=== PATIENT | female | born 2000 | race Caucasian/White ===

== ENCOUNTER → 2019-10-29 | Outpatient (CLI) | payer MEDICAID, SELFPAY ==
[2015-06-24 10:47] VITALS: BMI 26.3
[2019-10-29 19:21] LABS: Chlamydia Trachomatis by PCR Negative (Negative); Neisserai gonorrhoeae by PCR Negative (Negative); Probe Check PASS; Sample Adequacy Control PASS; Specimen Processing Control PASS
== END | disposition home or self-care (01) ==
PROVIDERS: PCP Family Medicine; Referring Provider Obstetrics & Gynecology; Visit Provider Obstetrics & Gynecology
DX: Z11.3 Encounter for screening for infections with a predominantly sexual mode of transmission (principal)
CPT/HCPCS: 87491; 87591

== ENCOUNTER → 2019-11-09 | Outpatient (CLI) | payer MEDICAID, SELFPAY ==
[2015-06-24 10:47] VITALS: BMI 26.3
[2019-11-09 15:22] LABS: Absolute Lymphocyte Count 3.23 X10^3/uL (0.83-4.51); Absolute Neutrophil Count 9.3 X10^3/uL (2.0-7.7); Basophil# 0.05 X10^3/uL; Basophil% 0.4 % (0-1); Eosinophil# 0.17 X10^3/uL; Eosinophils% 1.3 % (0-5); Hematocrit 40.9 % (37-47); Hemoglobin 13.9 g/dL (12.0-15.0); Lymphocyte # 3.23 X10^3/ul (4.0); Mean Corpuscular Hgb 30.8 pg (27.0-32.0); Mean Corpuscular Volume 90.7 fL (81-99); Mean Platelet Vol. 10.2 fl (6.2-12.0); Monocyte# 0.64 X10^3/uL; Monocyte% 4.8 % (0-10); NRBC Flagged by Analyzer 0 % (0-5); Neutrophil % 68.9 % (47-70); Platelet Count 288 K/mm3 (150-450); RBC Distribution Width CV 12.4 % (11.6-14.6); RBC Distribution Width SD 40.5 fl (35.1-43.9); Red Blood Count 4.51 M/mm3 (4.2-5.4); White Blood Count 13.5 K/mm3 (4.4-11.0)
[2019-11-09 15:39] LABS: Color, Urine Straw (Yellow); Glucose, Dipstick Normal (Normal); Ketone-Dipstick Negative (Negative); Leukocyte Esterase-Dipstick Negative /ul (Negative); Nitrite-Dipstick Negative (Negative); Occult Blood-Urine Negative /ul (Negative); Protein-Dipstick Negative (Negative); Specific Gravity, Urine 1.015 (1.002-1.030); Urine Bilirubin Dipstick Negative (Negative); Urine Clarity Clear (Clear); Urine Urobilinogen Normal (Normal)
[2019-11-09 15:53] LABS: Amphetamine Urine VISTA NEGATIVE (<1000 ng/mL); Barbiturate Urine VISTA NEGATIVE (< 200 ng/mL); Benzodiazepine Urine VISTA NEGATIVE (< 200 ng/mL); Cocaine Urine VISTA NEGATIVE (< 300 ng/mL); Ecstacy Urine VISTA NEGATIVE (< 500 ng/mL); Methadone Urine VISTA NEGATIVE (< 300 ng/mL); PCP Urine VISTA NEGATIVE (< 25 ng/mL); THC Urine VISTA NEGATIVE (< 50 ng/mL); Vista UDS pH Range 6
[2019-11-09 15:56] LABS: Thyroid Stim Hormone (TSH) 2.94 uIU/mL (0.358-3.74)
[2019-11-12 10:25] LABS: HIV - WCH Non-Reactive (Nonreactive); Hepatitis B Surface Antigen Non-Reactive (Nonreactive); Hepatitis C Antibody Non-Reactive (Nonreactive); Rubella IgG 42.3 IU/mL
[2019-11-15 01:34] LABS: Prenatal RPR NONREACTIVE (NONREACTIVE)
== END | disposition home or self-care (01) ==
LOC: LABSPEC 14:48
PROVIDERS: PCP Family Medicine; Referring Provider Obstetrics & Gynecology; Visit Provider Obstetrics & Gynecology
DX: Z34.81 Encounter for supervision of other normal pregnancy, first trimester (principal)
CPT/HCPCS: 80307; 81002; 84443; 85025; 86703; 86762; 86803; 87340

== ENCOUNTER → 2020-02-13 16:03 | Outpatient (CLI) | payer MEDICAID, SELFPAY ==
[2015-06-24 10:47] VITALS: BMI 26.3
[2020-02-13 17:43] LABS: Mean Corp Hgb Conc 32.4 g/dL (32-36); Mean Corpuscular Hgb 31.5 pg (27.0-32.0); Mean Corpuscular Volume 97.1 fL (81-99); Mean Platelet Vol. 10.1 fl (6.2-12.0); Platelet Count 363 K/mm3 (150-450); RBC Distribution Width CV 13.1 % (11.6-14.6); RBC Distribution Width SD 46.5 fl (35.1-43.9); Red Blood Count 3.81 M/mm3 (4.2-5.4); White Blood Count 17.7 K/mm3 (4.4-11.0)
[2020-02-13 17:50] LABS: Glucose Challenge Gest 1H 50g 122 mg/dL (70-140)
== END ==
PROVIDERS: PCP Family Medicine; Visit Provider Obstetrics & Gynecology
DX: Z34.82 Encounter for supervision of other normal pregnancy, second trimester (principal)
CPT/HCPCS: 36415; 82950; 85027

== ENCOUNTER 2020-03-18 19:05 | Outpatient (CLI) | payer MEDICAID, SELFPAY ==
[2015-06-24 10:47] VITALS: BMI 26.3
[2020-03-18 19:25] VITALS: BMI 34.7
[2020-03-18] MEDS: Acetaminophen 500 MG Tablet 1000 MG PO (20:23)
[2020-03-18 21:46] LABS: Fetal Fibronectin Negative
--- NOTE | 2020-03-29 09:17 | OB.TRI.NOTE ---
History of Present Illness Date of Service: 03/18/20 Was patient seen by the physician?: No Reason For Visit: R/O LABOR Date of Service: 03/18/20 Final CEZAR: 05/08/20 Gestational age: 32 Weeks and 4 Days History of Present Illness: 32+ week intrauterine presents with some transient contractions. has been complicated by baby with gastroparesis. Patient was to follow with MFM and transfer total care to their practice. However, she has not yet done this and when she began christine and called maternal- medicine they instructed her to come here since she had not yet established care with their practice. Patient denies any bleeding and has noted good movement. Contractions are described as very mild. Allergies No Known Allergies Allergy (Verified 06/24/15 10:50) Laboratory Studies: Laboratory Tests 03/18/20 Range/Units 20:31 Fibronectin Negative NST - FHR Rate Baby B NST Reactive:: Yes FHR Category:: Category I Impression/Plan 32+ week intrauterine with having gastroparesis with transient contractions. fibronectin was negative and cervix is nonthreatening. Contractions subsided after oral fluids. Will discharge to home and to call with any increased contractions. Patient strongly encouraged to follow-up with maternal medicine as has been previously scheduled and she will call the office to have this arranged.
== END 2020-03-18 22:12 | disposition home or self-care (01) ==
LOC: WPOUT 19:08 → OBT 19:08
PROVIDERS: Obstetrics & Gynecology; PCP Family Medicine; Visit Provider Obstetrics & Gynecology
DX: O62.9 Abnormality of forces of labor, unspecified (principal); Z3A.32 32 weeks gestation of pregnancy
CPT/HCPCS: 59025; 59050; 82731; 99218; G0378

== ENCOUNTER 2020-04-08 14:55 | Outpatient (CLI) | payer MEDICAID, SELFPAY ==
[2020-04-08 15:08] VITALS: BMI 36.5
[2020-04-08 15:10] VITALS: TEMP 36.7; O2SAT 97
[2020-04-08 15:11] VITALS: BP 120/66; PULSE 103
[2020-04-08 15:56] LABS: ROM Internal Control Test YES-OK TO RESULT pt. (Internal QC); ROM Patient Test Negative (Negative)
--- NOTE | 2020-04-14 12:02 | OB.TRI.NOTE ---
- Problem List (1) 35 weeks gestation of Status: Acute History of Present Illness Date of Service: 04/08/20 Was patient seen by the physician?: No Reason For Visit: R/O SROM Final CEZAR: 05/08/20 Gestational age: 35 Weeks and 5 Days History of Present Illness: c/o leaking of fluid. complicated by gastroschesis. Patient plans delivery in [place] with [facility]. Allergies No Known Allergies Allergy (Verified 04/08/20 15:08) Laboratory Studies: Laboratory Tests 04/08/20 Range/Units 15:15 Vag Amniotic Fld Detect Negative (Negative) Physical Exam Vitals: Vital Signs Temp Pulse BP Pulse Ox 98.0 F 103 H 120/66 97 04/08/20 15:10 04/08/20 15:11 04/08/20 15:11 04/08/20 15:10 NST - FHR Rate Baby A Baseline: 145 Variability:: Moderate Accelerations:: 15 x 15 Decelerations:: None NST Reactive:: Yes FHR Category:: Category I Uterine Activity:: 2/10 Impression/Plan Labs & Testing Vag Amniotic Fld Detect Negative (Negative) 04/08/20 15:15 19yo G1 @ 35 5/7 wga with false labor < 37wga -Patient does not feel contractions per report -No ROM -d/c home
== END 2020-04-08 16:25 | disposition home or self-care (01) ==
LOC: WPOUT 15:05 → WP 15:07
PROVIDERS: PCP Family Medicine; Referring Provider Obstetrics & Gynecology; Visit Provider Obstetrics & Gynecology
DX: O47.03 False labor before 37 completed weeks of gestation, third trimester (principal); Z3A.35 35 weeks gestation of pregnancy
CPT/HCPCS: 59025; 59050; 84112; 99218; G0378

== ENCOUNTER 2020-04-18 18:25 | Inpatient (IN) | payer MEDICAID, SELFPAY ==
[2020-04-18] VITALS (13 sets, daily range): BP systolic 119–164; BP diastolic 72–102; PULSE 79–108; RESP 16–20; TEMP 36.1–37.7; O2SAT 98–100; BMI 36.2
[2020-04-18] MEDS: Lactated Ringers 1,000 ML 999 ML IV (18:00)
[2020-04-18 18:23] LABS: Hematocrit 40.2 % (37-47); Mean Corp Hgb Conc 32.3 g/dL (32-36); Mean Corpuscular Hgb 29.1 pg (27.0-32.0); Mean Corpuscular Volume 90.1 fL (81-99); Mean Platelet Vol. 10.8 fl (6.2-12.0); Platelet Count 489 K/mm3 (150-450); RBC Distribution Width CV 13.1 % (11.6-14.6); RBC Distribution Width SD 42.8 fl (35.1-43.9); Red Blood Count 4.46 M/mm3 (4.2-5.4); White Blood Count 22.5 K/mm3 (4.4-11.0)
--- NOTE | 2020-04-18 18:27 | HP.PCM_ITS ---
History and Physical Date of Admission: 04/18/20 CC: contractions Subjective HPI: 19 yo at 37/1w, CEZAR 05/08/20 by 15w US, admitted for labor and tachycardia. Pt started contractions today. No LOF, VB. +FM. Denies ALVAREZ, vision changes, chest pain, dyspnea, nausea/emesis. complicated by: gastroschisis, IUGR. Pt had been following with MFM and was planned to be induced on Tuesday04/21/20 in [place]. MFM wanted her to be delivered there. Received [facility] on 04/11 and 04/12 OB Hx: G1: current Medical Hx: Denies Surgical Hx: wisdom teeth extractin Allergies: NKDA Family Hx: noncontributory. No hx of blood clots, bleeding disorders Social Hx: denies alcohol, drugs. +tobacco ROS: otherwise negative aside from above. Physical Exam: Vital Signs - 24 hr 04/18/20 17:39 Temperature 98.4 F Pulse Rate 108 H Blood Pressure 127/73 H Pulse Ox 98 Gen: NAD HEENT: NC/AT CARDIORESP: no increased effort ABDOMEN: soft, NT, gravide EXT: no edema NEURO: no focal deficits CE: 4 cm per RN Panel: Mom's Labs & Results 04/18/20 18:00 WBC 22.5 H RBC 4.46 Hgb 13.0 Hct 40.2 MCV 90.1 MCH 29.1 MCHC 32.3 RDW Std Deviation 42.8 RDW Coeff of Zbigniew 13.1 Plt Count 489 H MPV 10.8 Labs Blood Type: O RH: POSITIVE RPR/VDRL/Syphilis Nonreactive Rubella status Immune HbSAg Negative Date Done: 11/09/19 Chlamydia Negative Gonorrhea Negative HIV/AIDS Non-Reactive Group B Strep: Negative Labs: Laboratory Results - last 24 hr 04/18/20 18:00 WBC 22.5 H RBC 4.46 Hgb 13.0 Hct 40.2 MCV 90.1 MCH 29.1 MCHC 32.3 RDW Std Deviation 42.8 RDW Coeff of Zbigniew 13.1 Plt Count 489 H MPV 10.8 FHR: 170-180s/minimal variability/no accel/no decel [place]: irregular BSUS: cephalic A/P: 19 yo at 37/1w, CEZAR 05/08/20 by 15w US, admitted for labor and tachycardia. complicated by: gastroschisis, IUGR. Will monitor tachycardia, give IVF bolus. Unable to transport at this time due to tachycardia.
[2020-04-18] MEDS: Acetaminophen 500 MG Tablet 1000 MG PO (18:44)
[2020-04-18] MEDS: Lactated Ringers 1,000 ML 150 ML IV (19:08)
[2020-04-18] MEDS: Cefazolin 2 GM in 0.9% Normal Saline 100 ML IV (19:31)
[2020-04-18] MEDS: Sodium Citrate/Citric Acid 30 ML UDC PO (19:31)
[2020-04-18] MEDS: Methylergonovine 0.2 MG/ML Ampul IM (21:09)
[2020-04-18] MEDS: miSOPROStol 200 MCG Tablet 1000 MCG RECTAL (21:21)
--- NOTE | 2020-04-18 21:23 | DCINST_ITS ---
<Alcira Do - Last Filed: 04/18/20 21:23> Discharge Activity: Return to Normal Activity, May not drive while taking narcotic pain medications., May Shower May resume sexual activity in: 6 weeks Weight Bearing Status: Weight bearing as tolerated Call your doctor if your incision/area has: Continuous Slow Oozing, Increased Pain/ Swelling Call your doctor if you observe: Fever of 101 or Higher, Inability to urinate, Inability to have a bowel movement Additional Instructions: If you experience any of the following, contact your healthcare provider. * Bleeding that soaks a pad every hour for 2 hours * Fever 100.4 or higher * Unrelieved incision or abdominal pain * Swelling, redness, discharge or bleeding from your incision or episiotomy site * Your incision begins to separate * Problems urinating (including inability to urinate or burning while urinating). * Visual changes * Severe headache * Flu-like symptoms * Pain or redness in one of both of your breasts * Pain, warmth, tenderness or swelling in your legs, especially the calf area * Frequent nausea and vomiting * Symptoms of depression or anxiety If you experience any of the following, call 911 or go to the nearest Emergency Room. * Chest pain * Problems breathing * Seizure activity * Partial or complete paralysis of a body part, slurred speech, weakness or drooping of the face, or a sudden inability to walk or hold your balance Allergies/Adverse Reactions: Allergies No Known Allergies Allergy (Verified 04/08/20 15:08) Medications to take at Discharge Vits [Prenatabs FA ] 1 tab PO DAILY 03/18/20 Docusate Sodium [Colace] 100 mg PO BID PRN PRN #60 cap 04/20/20 Ibuprofen [Motrin] 600 mg PO Q8H PRN #30 tab 04/20/20 Oxycodone [Oxyir] 1 tab PO Q6H PRN 7 Days #10 tablet 04/20/20 The following prescriptions were given: Docusate Sodium [Colace] 100 mg PO BID PRN PRN #60 cap PRN Reason: constipation [facility] Status[id number] Ibuprofen [Motrin] 600 mg PO Q8H PRN #30 tab PRN Reason: Pain Or Fever Transmission Status: [facility] Oxycodone [Oxyir] 1 tab PO Q6H PRN 7 Days #10 tablet PRN Reason: Pain Score 4-10 Transmission Status: Sent to [id number] Follow-Up: Call to make an appointment with your doctor for an incision check in 1-2 weeks. You will also need a 6 week post- follow up appointment. Test results from this visit will be discussed in further detail at your follow- up appointment, if applicable. Please Follow Up With: Alcira Do DO Primary Care Physician: Cyn Moore DO [Primary Care Provider] - <Yesi Mckeon - Last Filed: 04/20/20 08:12> Suture Line Care: Avoid Pulling/Pushing Additional Instructions: If you experience any of the following, contact your healthcare provider. * Bleeding that soaks a pad every hour for 2 hours * Fever 100.4 or higher * Unrelieved incision or abdominal pain * Swelling, redness, discharge or bleeding from your incision or episiotomy site * Your incision begins to separate * Problems urinating (including inability to urinate or burning while urinating). * Visual changes * Severe headache * Flu-like symptoms * Pain or redness in one of both of your breasts * Pain, warmth, tenderness or swelling in your legs, especially the calf area * Frequent nausea and vomiting * Symptoms of depression or anxiety If you experience any of the following, call 911 or go to the nearest Emergency Room. * Chest pain * Problems breathing * Seizure activity * Partial or complete paralysis of a body part, slurred speech, weakness or drooping of the face, or a sudden inability to walk or hold your balance Follow-Up: Call to make an appointment with your doctor for an incision check in 1-2 weeks. You will also need a 6 week post- follow up appointment. Test results from this visit will be discussed in further detail at your follow- up appointment, if applicable. When: 1-2 weeks
--- NOTE | 2020-04-18 21:24 | PCM.OPRPT ---
Delivery Final CEZAR: 05/08/20 Final CEZAR Source: US <20 weeks Gestational age: 37 Weeks and 1 Days doctor who attended delivery (if requested by OB): Wanda Nagy biomedical engineering technician: Guy Do Type of Anesthesia:: General Date of Procedure: 04/18/20 Pre-Operative Diagnosis: tachycardia, Gastroschisis, 37/1w Post-Operative Diagnosis: tachycardia, Gastroschisis, 37/1w Indications: 19 yo at 37/1w presenting in labor and with tachycardia. Complicated by gastroschisis. Decision for primary section made for tachycardia with minimal variability after attempt at fluid resuscitation made. Original plan to wait for [facility] transport team to arrive, however on further discussion with pilot boat captain on site took patient to OR prior to [facility] arrival, with plan to keep bowel warm and moist until team arrived. R/B/A discussed with patient including but not limited to: risk of bleeding to the point of transfusion, infection, injury to surrounding tissue (bowel or bladder, requiring prolonged ford catheter use), VTE, ICU admission. Pt aware and consented. Description of Procedure: Patient taken to operating room. monitoring continued at that time until anesthesia arrived. Spinal placed. Patient placed in supine position with left lateral tilt. Prepped and draped in usual sterile fashion. Tested with Allis clamp, could feel sharp pain. General anesthesia completed at that time. Pfannensteil incision made with scalpel and carried down through underlying tissue and fascia. Fascia extended bilaterally bluntly. Muscles at the midline and peritoneum entered bluntly. Bladder blade placed. Scalpel used to make a low transverse uterine incision. Uterus entered bluntly, thin meconium fluid. Hysterotomy extended. Hand placed into the uterus and with the assistance of gentle fundal pressure delivered followed by body. No nuchal cord. Cord clamped and cut, warm moist towel placed over exposed bowel. Baby to nurse. Manual extraction of the placenta. Uterus exteriorized and cleared of all clots with dry lap. Hysterotomy closed interlocking fashion followed by second vertical imbricating stitch. 1 [id number] suture placed. Hysterotomy hemostatic. Uterus replaced into the abdomen. Peritoneum closed with a running stitch. Fascia closed with running stitch. Subcutaneous tissue closed in a similar fashion. Skin closed with a running subcuticular stitch. Steri strips placed. The end of the procedure all needle, lap, sponge counts were correct x3. EBL 800 cc at completion of surgery. Patient had 200 additional cc of bleeding and was given 1000 mcg of Cytotec and 1 dose of Methergine. Baby transported to [facility] in stable condition. Amniotic Membrane Rupture Type: Artificial Amniotic Fluid Description: Lightly stained meconium Placenta Disposition: Sent to Pathology Esitmated Blood Loss (ml): 1000cc Gender: Male (1 minute): 5 (5 minute): 8 Delayed cord clamping: No Antibiotic Given: Ancef 2 grams IV x1, Zithromax 500 mg/5 mL X1
[2020-04-18] MEDS: Oxytocin 30 units/NS 500 ml 30 UNITS/500 ML IV.SOLN 167 UNITS IV (21:30)
[2020-04-18] MEDS: HYDROmorphone 0.5 MG/0.5 ML SYRINGE 0.2 MG IV (23:20)
--- NOTE | 2020-04-18 23:38 | NURSING ---
Late entry infant cord gases were collected by Carolina PARKS, and sent to ER via tube system as requested by Katelin SENIOR
[2020-04-19] VITALS (12 sets, daily range): BP systolic 102–116; BP diastolic 56–70; PULSE 74–98; RESP 16–18; TEMP 36.6–38.1; O2SAT 93–98
--- NOTE | 2020-04-19 00:31 | NURSING ---
Pumping initiated at 00:00. 20minutes of pumping. Colostrum collected, labeled, and placed in the breastmilk refrigerator. Parents provided verbal and written instructions on how to pump, when to pump, storing & labeling milk storage containers, and cleaning/ sanitizing pump parts. They both verbalize understanding. Reinforcement needed
[2020-04-19] MEDS: Lactated Ringers 1,000 ML 100 ML IV (00:42)
[2020-04-19] MEDS: Acetaminophen 500 MG Tablet 1000 MG PO ×4 (01:18→19:10)
--- NOTE | 2020-04-19 01:43 | PCM.PN.BLA ---
Progress Note Advised by RN that patient with Tm/c 100.5. 19yo s/p PLTCS for NRFHT with gastroschesis, transferred to [facility]. Had general anesthesia, IV Azithromycin and Ancef, C/S with EBL 1000mL and patient given IM Methergine and misoprostol in addition to pitocin. Patient denies fever, chills, nausea, vomiting, headache, vision changes, short throat, ear pain, chest pain, shortness of breath. Denies urinary sx prior to delivery. She is uncertain if she might have broken her water prior to labor. Her pain is improved with IV pain medication, but she reports painfulness associated with lower abdominal cramping and vaginal pain. VSS, RRR, Lungs CTAB. Abdomen is soft, nontender and nondistended with fundus firm at 2 FW below the umbilicus and nontender, incisional dressing without saturation and surround area also appropriately tender postop. No evidence of infection. Admission wbc elevated, however, likely due to early labor - baseline leukocytosis in with prior wbc 13.5 at 14 week intake and 17 .7 at 27 weeks gestation. Suspect temperature elevation due to misoprostol. Scheduled Tylenol given. Will monitor for additional evidence of infection. Plan to start antibiotics for any high grade temperature. STROKE Vital Signs/Narrative: Vital Signs Temp Pulse Resp BP BP Pulse Ox 04/19/20 01:12 100.5 F H 93 18 116/60 98 04/18/20 23:55 98.8 F 93 16 119/78 100 04/18/20 23:40 99.8 F H 90 18 119/74 100 04/18/20 23:25 99 F 100 16 120/74 100 04/18/20 23:05 99.5 F H 86 16 131/86 H 100 04/18/20 22:55 99.0 F 88 18 129/93 H 100 04/18/20 22:36 98.8 F 79 18 132/86 H 100 04/18/20 22:25 99.3 F H 81 16 142/79 H 100 04/18/20 22:10 97.6 F L 81 16 149/72 H 100 04/18/20 21:55 97 F L 81 20 H 164/102 H 98
--- NOTE | 2020-04-19 02:38 | NURSING ---
0230- Pumping initiated. Pt. up in chair for this pumping session.
[2020-04-19] MEDS: Ketorolac 30 MG/ML Syringe IV ×4 (03:40→21:37)
[2020-04-19] MEDS: oxyCODONE 5 MG Tablet PO ×2 (04:02→08:51)
[2020-04-19 05:35] LABS: Hematocrit 31.7 % (37-47); Hemoglobin 10.4 g/dL (12.0-15.0); Mean Corp Hgb Conc 32.8 g/dL (32-36); Mean Corpuscular Hgb 29.7 pg (27.0-32.0); Mean Corpuscular Volume 90.6 fL (81-99); Mean Platelet Vol. 10.6 fl (6.2-12.0); Platelet Count 376 K/mm3 (150-450); RBC Distribution Width CV 13.2 % (11.6-14.6); RBC Distribution Width SD 43.7 fl (35.1-43.9); White Blood Count 22.8 K/mm3 (4.4-11.0)
--- NOTE | 2020-04-19 07:22 | PN.OBGYN_ITS ---
Patient Problems: Active and Suspected Problems 37 weeks gestation of (Acute) S/P primary low transverse (Acute) Subjective: Harmony reports she is painful this morning at her incision. Denies nausea, vomiting. She tolerates PO. No flatus yet. She was out of bed to chair earlier and pumped colostrum. She reports pain medication helps her pain some. Objective: Vital Signs Temp 99.0 F 04/19/20 05:08 Pulse 98 04/19/20 05:08 Resp 18 04/19/20 05:08 BP 105/56 L 04/19/20 05:08 Pulse Ox 96 04/19/20 05:08 Intake & Output 04/17/20 04/18/20 04/19/20 23:59 23:59 23:59 Intake Total 1520 / 1520 1300 / 1300 Output Total 600 / 600 Balance 920 / 920 1300 / 1300 Weight: 87 kg Intake: Oral 100 / 100 800 / 800 Intake, IV Amount 1420 / 1420 500 / 500 Cefazolin 10 GM/50 ML In 0.9% 110 / 110 Normal Saline 100 ML @ 150 mls/ hr IV X1 ONE Rx#:[id number] Lactated Ringers 1,000 ML @ 150 55 / 55 mls/hr IV .Q6H40M [facility] Rx#: [id number] Lactated Ringers 1,000 ML @ 999 1000 / 1000 mls/hr IV .Q1H1M [facility] Rx#: [id number] Oxytocin 30 units/NS 500 ml 30 500 / 500 UNITS/500 ML30 units In 500 ml @ 167 mls/hr IV .Q3H [facility] Rx#: [id number] Zithromax 500 MG In Dextrose 5% 255 / 255 250 ML @ 250 mls/hr IV X1 ONE Rx#:[id number] Output: Urine 600 / 600 - Physical Exam Vitals/I&O's: Vital Signs Temp Pulse Resp BP Pulse Ox 99.0 F 98 18 105/56 L 96 04/19/20 05:08 04/19/20 05:08 04/19/20 05:08 04/19/20 05:08 04/19/20 05:08 Oxygen Delivery Method Room Air Weight: 87 kg Body Mass Index (BMI) 36.2 Intake and Output for Last 24 Hours 10/01/20 10/02/20 10/03/20 23:59 23:59 23:59 Intake Total 1520 / 1520 1300 / 1300 Output Total 600 / 600 Balance 920 / 920 1300 / 1300 General: Alert, Oriented x3, Cooperative, No apparent distress HEENT: Atraumatic, Normocephalic Lungs: Clear to auscultation, Normal air movement Cardiovascular: Regular rate, Regular Rhythm, Normal S1, Normal S2, No murmurs Abdomen: Soft, Non Tender, Non-Distended, - - Fundus firm and nontender at 2 fw below umbilicus, incisional dressing intact with 2 - 1 cm areas of saturation. Incision is appropriately tender, no rebound/guarding or skin changes Extremities: No edema, No Calf Tenderness Neurological: Deep Tendon Reflexes 2+/4 and Symmetrical Psych/Mental Status: Normal Affect, Appropriate, Alert and oriented to time, place, person, mood and affect Laboratory Results 04/18/20 18:00: WBC 22.5 H, RBC 4.46, Hgb 13.0, Hct 40.2, MCV 90.1, MCH 29.1, MCHC 32.3, RDW Std Deviation 42.8, RDW Coeff of Zbigniew 13.1, Plt Count 489 H, MPV 10.8 04/18/20 18:00: Blood Type O POSITIVE, Antibody Screen NEGATIVE 04/19/20 05:20: WBC 22.8 H, RBC 3.50 L, Hgb 10.4 L, Hct 31.7 L, MCV 90.6, MCH 29.7, MCHC 32.8, RDW Std Deviation 43.7, RDW Coeff of Zbigniew 13.2, Plt Count 376, MPV 10.6 Current Medications Acetaminophen (Tylenol) 1,000 mg PO Q6H [facility] Last Admin: 04/19/20 07:02 Dose: 1,000 mg Documented by: Bisacodyl (Dulcolax) 10 mg RECTAL UD PRN PRN Reason: If no BM Enoxaparin Sodium (Lovenox) 40 mg SC DAILY [facility] Hydrocortisone (Hytone) 1 applic TOPICAL TID PRN PRN; Protocol PRN Reason: Discomfort Hydromorphone HCl (Dilaudid Inj) 0.2 mg IV Q3H PRN PRN PRN Reason: Pain Score 6-10/10 Last Admin: 04/18/20 23:20 Dose: 0.2 mg Documented by: Lactated Ringer's () 1,000 mls @ 100 mls/hr IV .Q10H [facility] Last Admin: 04/19/20 00:42 Dose: 100 mls/hr Documented by: Naloxone HCl 4 mg/ Dextrose 504 mls @ 0 mls/hr IV .Q0M PRN; Protocol PRN Reason: Respiratory depression Ibuprofen (Motrin) 600 mg PO Q6H [facility] Ketorolac Tromethamine (Toradol (Bkc)) 30 mg IV Q6H [facility] Stop: 04/19/20 21:31 Last Admin: 04/19/20 03:40 Dose: 30 mg Documented by: Naloxone HCl (Narcan) 0.02 mg IV Q1M PRN PRN Reason: RR <10 and pt unresponsive Ondansetron HCl (Zofran) 4 mg IV Q4H PRN PRN PRN Reason: Nausea Oxycodone HCl (Oxyir) 5 - 10 mg PO Q4H PRN PRN PRN Reason: Pain Score 4-10/10 Last Admin: 04/19/20 04:02 Dose: 5 mg Documented by: Multivit/Folic Acid/Iron (Prenatabs Fa) 1 tablet PO DAILY [facility] Prochlorperazine Edisylate (Compazine Iv) 10 mg IV Q6H PRN PRN PRN Reason: NAUSEA Senna/Docusate Sodium (Senokot-S, Gala-Colace) 1 - 2 tablet PO DAILY [facility] Simethicone (Mylicon) 80 mg PO PCHS PRN PRN Reason: Indigestion/stomach pain Sodium Chloride () 5 - 15 ml IV UD PRN PRN Reason: SALINE FLUSH Medical Necessity - Tobacco Use Smoking Status: Current every day smoker Assessment/Plan All Active Problems 37 weeks gestation of (Acute) S/P primary low transverse (Acute) 19yo POD# 1 s/p PLTCS for NRFHT, had general anesthesia, infant transported to [facility] for gastroschesis with low grade fever overnight -No further evidence of infection and wbc not significantly elevated from prior this morning. Will continue to monitor. -Rh positive -Routine postop care -Social work consultation
--- NOTE | 2020-04-19 07:37 | NURSING ---
during this shift, this RN observed FOB answering most questions for pt and often interrupting pt to answer questions for her. FOB discussed having financial concerns and relies on his mother for transportation. Social service consult placed
[2020-04-19] MEDS: 0.9% Saline Lock 10 ML Syringe IV ×2 (10:01→15:23)
[2020-04-19] MEDS: Senna/Docusate Sodium 1 Tablet PO (10:03)
[2020-04-19] MEDS: Prenatal Vits Tablet 1 TABLET PO (10:04)
[2020-04-19] MEDS: Enoxaparin 40 MG/0.4 ML Syringe SC (10:05)
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
[2020-04-20 01:08] VITALS: BP 101/61; PULSE 90; RESP 16; TEMP 36.8
[2020-04-20] MEDS: Acetaminophen 500 MG Tablet 1000 MG PO ×2 (01:19→07:03)
[2020-04-20] MEDS: Ibuprofen 600 MG Tablet PO ×2 (03:26→09:41)
[2020-04-20 08:28] VITALS: BP 112/61; PULSE 96
[2020-04-20 08:30] VITALS: BP 112/61; PULSE 96; RESP 16; TEMP 36.7; O2SAT 98
--- NOTE | 2020-04-20 09:04 | PN.OBGYN_ITS ---
Patient Problems: Active and Suspected Problems S/P primary low transverse (Acute) 37 weeks gestation of (Acute) Subjective: Denies significant pain. She has been out of bed, ambulating, had a bowel movement and tolerates PO. Denies nausea, vomiting, chest pain, shortness of breath, headache or vision changes. She is pumping and desires discharge later today. Objective: avss - Physical Exam Vitals/I&O's: Vital Signs Temp Pulse Resp BP Pulse Ox 98.0 F 96 16 112/61 98 04/20/20 08:30 04/20/20 08:30 04/20/20 08:30 04/20/20 08:30 04/20/20 08:30 Oxygen Delivery Method Room Air Weight: 87 kg Body Mass Index (BMI) 36.2 Intake and Output for Last 24 Hours 04/18/20 04/19/20 04/20/20 23:59 23:59 23:59 Intake Total 1520 / 1520 2930 / 2930 Output Total 600 / 600 1300 / 1300 Balance 920 / 920 1630 / 1630 General: Alert, Oriented x3, Cooperative HEENT: Atraumatic, PERRLA, EOMI, Normocephalic Lungs: Clear to auscultation, Normal air movement Cardiovascular: Regular rate, Regular Rhythm, Normal S1, Normal S2, No murmurs Abdomen: Bowel Sounds Present, Soft, Non Tender, - - Fundus firm and nontender, incisional dressing removed and steristrips intact - incision nontender Extremities: No edema, No Calf Tenderness Neurological: Neuro grossly intact Psych/Mental Status: Normal Affect, Appropriate, Alert and oriented to time, place, person, mood and affect Current Medications Acetaminophen (Tylenol) 1,000 mg PO Q6H [facility] Last Admin: 04/20/20 07:03 Dose: 1,000 mg Documented by: Bisacodyl (Dulcolax) 10 mg RECTAL UD PRN PRN Reason: If no BM Enoxaparin Sodium (Lovenox) 40 mg SC DAILY [facility] Last Admin: 04/19/20 10:05 Dose: 40 mg Documented by: Hydrocortisone (Hytone) 1 applic TOPICAL TID PRN PRN; Protocol PRN Reason: Discomfort Hydromorphone HCl (Dilaudid Inj) 0.2 mg IV Q3H PRN PRN PRN Reason: Pain Score 6-10/10 Last Admin: 04/18/20 23:20 Dose: 0.2 mg Documented by: Naloxone HCl 4 mg/ Dextrose 504 mls @ 0 mls/hr IV .Q0M PRN; Protocol PRN Reason: Respiratory depression Ibuprofen (Motrin) 600 mg PO Q6H [facility] Last Admin: 04/20/20 03:26 Dose: 600 mg Documented by: Naloxone HCl (Narcan) 0.02 mg IV Q1M PRN PRN Reason: RR <10 and pt unresponsive Ondansetron HCl (Zofran) 4 mg IV Q4H PRN PRN PRN Reason: Nausea Oxycodone HCl (Oxyir) 5 - 10 mg PO Q4H PRN PRN PRN Reason: Pain Score 4-10/10 Last Admin: 04/19/20 08:51 Dose: 10 mg Documented by: Multivit/Folic Acid/Iron (Prenatabs Fa) 1 tablet PO DAILY [facility] Last Admin: 04/19/20 10:04 Dose: 1 tablet Documented by: Prochlorperazine Edisylate (Compazine Iv) 10 mg IV Q6H PRN PRN PRN Reason: NAUSEA Senna/Docusate Sodium (Senokot-S, Gala-Colace) 1 - 2 tablet PO DAILY [facility] Last Admin: 04/19/20 10:03 Dose: 2 tablet Documented by: Simethicone (Mylicon) 80 mg PO PCHS PRN PRN Reason: Indigestion/stomach pain Sodium Chloride () 5 - 15 ml IV UD PRN PRN Reason: SALINE FLUSH Last Admin: 04/19/20 15:23 Dose: 10 ml Documented by: Medical Necessity - Tobacco Use Smoking Status: Current every day smoker Assessment/Plan All Active Problems S/P primary low transverse (Acute) 37 weeks gestation of (Acute) 19yo POD# 2 s/p PLTCS for NRFHT, had general anesthesia, transported to [facility] for gastroschisis with low grade fever overnight -Temperature curve normalized > 24 hours, suspect T elevation due to misoprostol prior. No si/sx infection -Rh positive -Routine postop care -/pumping -Social work consultation completed -Plan for d/c later today
[2020-04-20] MEDS: Senna/Docusate Sodium 1 Tablet PO (09:41)
[2020-04-20] MEDS: Prenatal Vits Tablet 1 TABLET PO (09:41)
[2020-04-20] MEDS: Enoxaparin 40 MG/0.4 ML Syringe SC (09:41)
--- NOTE | 2020-04-20 09:51 | NURSING ---
baby transferred to [facility]. Pt plans on pumping and bottle feeding at home.
[2020-04-20 11:21] VITALS: RESP 18
--- NOTE | 2020-04-21 06:23 | PCM.DC.SUM ---
Discharge Date and Diagnosis Date of Admission: 04/18/20 Date of Discharge: 04/20/20 - Primary Discharge Diagnosis Acute Problems: Diagnoses Encounter for delivery without indication 04/18/20 Hospital Course and Treatment Operations: - - Low transverse section Summary of Care Provided: The patient is a 19 year old G1 @ 38 weeks gestational age admitted in labor. Her was complicated by gastroschisis and IUGR with plan to delivery in [place]. The FHR tracing however became Category II and did not respond to intrauterine resuscitative efforts. She was delivered by section under general anesthesia, received Methergine and misoprostol postoperative. Total EBL 1000mL. She had low grade immediate postoperative fever without persistence, attributable to misoprostol. Her postoperative course was otherwise unremarkable and she was discharged to home on post-operative day #2. Her was transferred to [facility] immediately after delivery. - Physical Exam Vitals/I&O's: Vital Signs Temp Pulse Resp BP Pulse Ox 98.0 F 96 18 112/61 98 04/20/20 08:30 04/20/20 08:30 04/20/20 11:21 04/20/20 08:30 04/20/20 08:30 Oxygen Delivery Method Room Air Weight: 87 kg Body Mass Index (BMI) 36.2 Intake and Output for Last 24 Hours 04/19/20 04/20/20 04/21/20 23:59 23:59 23:59 Intake Total 2930 / 2930 Output Total 1300 / 1300 Balance 1630 / 1630 Discharge Activity: Return to Normal Activity, May not drive while taking narcotic pain medications., May Shower May resume sexual activity in: 6 weeks Weight Bearing Status: Weight bearing as tolerated Call your doctor if your incision/area has: Continuous Slow Oozing, Increased Pain/ Swelling Call your doctor if you observe: Fever of 101 or Higher, Inability to urinate, Inability to have a bowel movement Suture Line Care: Avoid Pulling/Pushing Home Medications: Medications to take at Discharge Vits [Prenatabs FA ] 1 tab PO DAILY 03/18/20 Docusate Sodium [Colace] 100 mg PO BID PRN PRN #60 cap 04/20/20 Ibuprofen [Motrin] 600 mg PO Q8H PRN #30 tab 04/20/20 Oxycodone [Oxyir] 1 tab PO Q6H PRN 7 Days #10 tab 04/20/20 Following Prescriptions Were Given to Patient: Docusate Sodium [Colace] 100 mg PO BID PRN PRN #60 cap PRN Reason: constipation Transmission Status: Received by [facility] Ibuprofen [Motrin] 600 mg PO Q8H PRN #30 tab PRN Reason: Pain Or Fever [facility] Oxycodone [Oxyir] 1 tab PO Q6H PRN 7 Days #10 tab PRN Reason: Pain Score 4-10 Transmission Status: Received by [facility] Primary Care Physician: Cyn Moore DO [Primary Care Provider] - Please Follow Up With: Alcira Do DO When: 1-2 weeks Medical Necessity - Tobacco Use Smoking Status: Current every day smoker Meaningful Use Info Meaningful Use Diagnoses (Choose all that apply): None applicable
[2020-04-21 11:53] VITALS: BP 124/77; PULSE 75
== END 2020-04-20 11:15 | disposition home or self-care (01) | DRG 540 ==
LOC: WP 20:35 → WPOUT 04-21 09:32
PROVIDERS: Admitting Provider Student in an Organized Health Care Education/Training Program; PCP Family Medicine; Visit Provider Student in an Organized Health Care Education/Training Program
DX: O76 Abnormality in fetal heart rate and rhythm complicating labor and delivery (principal); O35.8XX0 Maternal care for other (suspected) fetal abnormality and damage, not applicable or unspecified; Z3A.37 37 weeks gestation of pregnancy; Z37.0 Single live birth; O36.5930 Maternal care for other known or suspected poor fetal growth, third trimester, not applicable or unspecified; O77.0 Labor and delivery complicated by meconium in amniotic fluid; F17.200 Nicotine dependence, unspecified, uncomplicated; O99.334 Smoking (tobacco) complicating childbirth; R50.82 Postprocedural fever
CPT/HCPCS: 59050; 76815; 85027; 86850; 86900; 86901; 99218; J7120; A4216; G0378; J2405

== ENCOUNTER → 2020-06-09 | Outpatient (CLI) | payer MEDICAID, SELFPAY ==
[2020-04-18 17:43] VITALS: BMI 36.2
[2020-06-12 03:07] LABS: Chlamydia By Nucleic Acid AMP Negative (Negative)
[2020-06-12 08:42] LABS: Gonococcus By Nucleic Acid AMP Negative (Negative)
== END | disposition home or self-care (01) ==
LOC: LABSPEC 06-10 08:22
PROVIDERS: PCP Family Medicine; Visit Provider Obstetrics & Gynecology
DX: Z11.3 Encounter for screening for infections with a predominantly sexual mode of transmission (principal)
CPT/HCPCS: 87491; 87591

== ENCOUNTER 2020-11-18 17:58 | Emergency (ER) | payer MEDICAID, SELFPAY ==
[2020-04-18 17:43] VITALS: BMI 36.2
[2020-11-18 17:59] VITALS: BP 109/92; PULSE 110; RESP 16; TEMP 37.3; O2SAT 98; BMI 39.5
[2020-11-18 18:02] VITALS: BP 109/92; PULSE 110; RESP 16; TEMP 37.3; O2SAT 98
--- NOTE | 2020-11-18 18:24 | EX.ED.DYSGE1 ---
HPI History of Present Illness Chief Complaint: Nausea/Vomiting Informant: patient Onset/Context/Timing Onset: Today Timing: Continuous Current Severity: Mild Maximum Severity: Mild Narrative Narrative: 20-year-old female whose boyfriend had similar symptoms yesterday. She started having nausea, vomiting and diarrhea around 6 AM this morning. Believes she may have thrown up 15-20 times. No hematemesis. No melena. No fever. No dysuria. States she is having abdominal cramping but no severe pain. States she felt fine yesterday. Prior similar symptoms: Yes Recent Illness/Hospitalization: No PFSH PFSH Medical History ADHD (attention deficit hyperactivity disorder) Depression Home Medications methylphenidate HCl [Concerta] 18 mg PO DAILY 11/18/20 [History Last Taken Unknown] ondansetron HCl [Zofran] 4 mg PO Q8H #7 tab 11/18/20 [Rx Last Taken Unknown] Allergy/AdvReac Type Severity Reaction Status Date / Time No Known Allergies Allergy Verified 11/18/20 18:06 Surgical History H/O: Social History Smoking Status: Heavy Smoker (>10/day) ROS ROS ED ROS Narrative Patient denies recent illness until today. Review of Systems ROS Unobtainable: Denies due to encephalopathy Constitutional Constitutional ED: Denies fever(s) Eyes Eyes: Denies change in vision ENT ENT ED: Denies ear pain or sore throat Cardiovascular Cardiovascular: Denies chest pain Respiratory/Chest Respiratory/Chest: Denies cough or dyspnea Gastrointestinal Gastrointestinal: Reports diarrhea, nausea and vomiting; Denies abdominal pain, constipation or melena Genitourinary Genitourinary ED: Denies dysuria or hematuria Musculoskeletal Musculoskeletal: Denies arthralgias or myalgias Integumentary Denies rash Neurologic Neurologic: Denies headache(s) Psychiatric Psychiatric: Denies depression Endocrine Endocrinology: Denies polyuria Allergic/Immunologic Allergic/Immunologic ED: Denies urticaria EXAM Physical Exam Narrative Exam Narrative: Young female no acute distress. Vital signs stable afebrile. Does not look septic or toxic. HEENT exam unremarkable other than mildly dry mucous membranes. Neck nontender no lymphadenopathy. Lungs clear to auscultation bilaterally. Heart regular rhythm rate about 105. No murmur. Abdomen soft nontender normal bowel sounds no peritoneal signs. Both the right upper and right lower quadrants are unremarkable. No distention. No signs of obstruction. Moving all 4 extremities. Skin no rashes. No edema. Neurologically the patient is awake alert with no focal motor deficits. Const Vital Signs: 11/18/20 17:59 11/18/20 18:02 11/18/20 19:14 Temperature 99.1 F 99.1 F 98.5 F Temperature Source Oral Oral Temporal Pulse Rate 110 H 110 H 89 Respiratory Rate 16 16 16 Blood Pressure 109/92 H 109/92 H 100/71 Blood Pressure Mean 97 97 80 Pulse Ox 98 98 100 Oxygen Delivery Method Room Air Room Air Room Air Positive well nourished and well developed General Appearance ED: well developed HEENT Reports dry mucous membranes Negative for trauma or tenderness Mouth ED: Yes dry mucous membranes Mouth: dry mucous membranes Eyes PERRL and EOMs intact bilaterally Neck no lymphadenopathy, supple and no JVD General: Negative for tenderness Chest Wall inspection of chest normal Resp normal respiratory effort and clear to auscultation bilaterally Auscultation: Negative for wheezes Cardio regular rhythm and no murmurs Rate: tachycardic GI normal to inspection, nondistended, normoactive bowel sounds, non-tender and non-distended Palpation: soft Back/Spine no CVA tenderness Extremity normal to inspection Neuro oriented x3 Sensorium / Orientation: alert Motor Exam: strength 5/5 throughout Psych mental status grossly normal Skin no rashes or lesions noted MDM MDM MDM Narrative Medical decision making narrative: 20-year-old female with nausea, vomiting and diarrhea since this morning. Will be treated with IV fluids and Zofran. P.o. fluid challenge prior to discharge. Boyfriend had similar symptoms her exam and history are consistent with a viral gastroenteritis. Repeat exam at 1930 5 PM patient is doing well. Nausea is improved. Nurses will do a p.o. fluid challenge if she passes she will be discharged home with prescription for Zofran. Abdomen remains benign. Discharge Plan Triage Chief Complaint: Nausea/Vomiting ED Provider: Simon Frausto Dx/Rx/DC Orders Clinical Impression: Viral gastroenteritis Instructions: ED Vomiting and Diarrhea ... Prescriptions: New ondansetron HCl [Zofran] 4 mg tablet 4 mg PO Q8H Qty: 7 RF: 0 No Action methylphenidate HCl [Concerta] 18 mg tablet extended release 24hr 18 mg PO DAILY RF: 0 Primary Care Provider: Jany Hendricks NP Referrals: Jany Hendricks NP, [employer] [Primary Care Provider] - 1-2 Days if not improving Activity Restrictions/Additional Instructions: Plenty of fluids and rest. Increase diet slowly as tolerated. Zofran as needed for nausea. Follow-up with your doctor if not improving return to emergency department if you are feeling worse. Disposition Disposition: Home, self care
[2020-11-18] MEDS: 0.9% Normal Saline 1,000 ML 1000 ML IV (18:30)
[2020-11-18] MEDS: Ondansetron 4 MG/2 ML Vial IV (18:30)
[2020-11-18 19:14] VITALS: BP 100/71; PULSE 89; RESP 16; TEMP 36.9; O2SAT 100
== END 2020-11-18 19:49 | disposition home or self-care (01) ==
LOC: ED 18:33
PROVIDERS: Emergency Provider Emergency Medicine; PCP Nurse Practitioner Family
DX: A08.4 Viral intestinal infection, unspecified (principal); F32.9 Major depressive disorder, single episode, unspecified; F90.9 Attention-deficit hyperactivity disorder, unspecified type; Z79.899 Other long term (current) drug therapy; F17.200 Nicotine dependence, unspecified, uncomplicated
CPT/HCPCS: 96361; 96374; 99285; J7030; A4216; J2405

== ENCOUNTER 2021-01-13 16:12 | Emergency (ER) | payer OTHER, MEDICAID, SELFPAY ==
[2021-01-13 16:13] VITALS: BP 117/75; PULSE 92; RESP 16; TEMP 36.4; O2SAT 97; BMI 40.8
--- NOTE | 2021-01-13 16:26 | ED.RN ---
fortunato called or [facility] drug screen. no answer message left for a call back. [phone] jaylin solis rn [id number]
--- NOTE | 2021-01-13 17:23 | EX.ED.GENINJ ---
HPI History of Present Illness Chief Complaint: Head Injury Narrative Narrative: Patient presenting with laceration to the scalp. Its on the vertex of the head. 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 Patient states that she feels fine at this time. She has no nausea or vomiting. She has minimal pain. She does not have any neck pain. She did not injure anything else. Patient states that she has been known to faint sometimes when she gets overheated. She does not feel like she is overly dehydrated. She is making urine. She is drinking normally. Tetanus Immunization: <5 years [facility] Medical History ADHD (attention deficit hyperactivity disorder) Depression Home Medications methylphenidate HCl [Concerta] 18 mg PO DAILY 11/18/20 [History Last Taken Unknown] ondansetron HCl [Zofran] 4 mg PO Q8H #7 tab 11/18/20 [Rx Last Taken Unknown] Allergy/AdvReac Type Severity Reaction Status Date / Time No Known Allergies Allergy Verified 01/13/21 16:18 Surgical History H/O: Social History Smoking Status: Heavy Smoker (>10/day) ROS ROS ED Constitutional Constitutional ED: Denies chills, fever(s) or subjective Eyes Eyes: Denies blurry vision ENT ENT ED: Denies rhinorrhea or sore throat Cardiovascular Cardiovascular: Denies chest pain, palpitations or racing heartbeat Respiratory/Chest Respiratory/Chest: Denies cough or dyspnea Gastrointestinal Gastrointestinal: Denies abdominal pain, nausea or vomiting Genitourinary Genitourinary ED: Denies dysuria or hematuria Musculoskeletal Musculoskeletal: Denies arthralgias or myalgias Integumentary Reports other Details: 1 cm scalp laceration at the vertex of the skull Neurologic Neurologic: Denies headache(s), paresthesias or weakness Psychiatric Psychiatric: Denies anxiety or depression EXAM Physical Exam Const Vital Signs: 01/13/21 16:13 01/13/21 16:45 Temperature 97.5 F L Temperature Source Temporal Pulse Rate 92 Respiratory Rate 16 Respiratory Effort Normal Non-Labored Respiratory Depth Normal Respiratory Pattern Normal Blood Pressure 117/75 Blood Pressure Mean 89 Pulse Ox 97 Oxygen Delivery Method Room Air Positive well nourished General Appearance ED: NAD FELECIAJYOTI FELECIAJYOTI Narrative: 1 cm scalp laceration at the vertex. No surrounding induration. No skull deformity. No active bleeding. Eyes PERRL and EOMs intact bilaterally Neck full ROM General: Negative for tenderness Resp normal respiratory effort and clear to auscultation bilaterally Cardio regular rhythm Rate: regular rate Neuro oriented x3, CN's II-XII intact bilaterally, moves all extremities and no focal motor deficits Sensorium / Orientation: alert and oriented to person Psych mental status grossly normal and thought process normal Skin Skin Narrative: Laceration as noted above MDM MDM MDM Narrative Medical decision making narrative: Patient presenting with scalp laceration which occurred after an episode of syncope. She stated that she did not want to have her syncope evaluated because she does this sometimes when she is overheated. Her scalp laceration is about 1 cm. She requested let gel be placed on it prior. Let was placed and was left in place for 30 minutes. Patient's wound was cleaned and 1 staple was placed in the center with good approximation of the wound margins. Patient does not have any focal neurologic deficits or lateralizing signs or symptoms. I do not believe she needs a CT image. I do not believe she has any signs or symptoms of concussion currently. Patient counseled she will follow up with [facility]. Patient given instructions on wound care and monitor for signs of infection. Patient stable for discharge at this time. Impression: 1. Syncope 2. Scalp laceration 1.0 cm Discharge Plan Triage Chief Complaint: Head Injury ED Provider: Simone Silva Dx/Rx/DC Orders Instructions: ED Laceration Scalp Stitches or Selene, ED Fainting, Uncertain Cause Prescriptions: No Action methylphenidate HCl [Concerta] 18 mg tablet extended release 24hr 18 mg PO DAILY RF: 0 ondansetron HCl [Zofran] 4 mg tablet 4 mg PO Q8H Qty: 7 RF: 0 Primary Care Provider: Jany Hendricks NP Referrals: [facility] [Provider Group] - As soon as possible Jany Hendricks NP, [employer] [Primary Care Provider] - Disposition Disposition: Home, Self Care
[2021-01-13] MEDS: Lidocaine/Epi/Tetracaine 50 ML 1 APPLIC TOPICAL (17:30)
== END 2021-01-13 18:49 | disposition home or self-care (01) ==
PROVIDERS: Emergency Provider Student in an Organized Health Care Education/Training Program; PCP Nurse Practitioner Family
DX: S01.01XA Laceration without foreign body of scalp, initial encounter (principal); R55 Syncope and collapse; W19.XXXA Unspecified fall, initial encounter; Y93.9 Activity, unspecified; Y92.9 Unspecified place or not applicable; F32.9 Major depressive disorder, single episode, unspecified; F90.9 Attention-deficit hyperactivity disorder, unspecified type; Z79.899 Other long term (current) drug therapy; F17.200 Nicotine dependence, unspecified, uncomplicated
CPT/HCPCS: 12001; 99282

== ENCOUNTER → 2021-12-28 | Outpatient (CLI) | payer MEDICAID, SELFPAY ==
[2021-12-28 10:46] LABS: Hematocrit 43.4 % (37-47); Hemoglobin 14.4 g/dL (12.0-15.0); Mean Corp Hgb Conc 33.2 g/dL (32-36); Mean Corpuscular Hgb 29.9 pg (27.0-32.0); Mean Platelet Vol. 9.8 fl (6.2-12.0); Platelet Count 388 K/mm3 (150-450); RBC Distribution Width CV 13.2 % (11.6-14.6); RBC Distribution Width SD 43.1 fl (35.1-43.9); Red Blood Count 4.82 M/mm3 (4.2-5.4); White Blood Count 9.7 K/mm3 (4.4-11.0)
[2021-12-28 11:33] LABS: Follicle Stimulating Hormone 5.7 mIU/mL; Luteinizing Hormone 11.8 mIU/mL; T4 Free Direct 0.85 ng/dL (0.76-1.46); Thyroid Stim Hormone (TSH) 1.34 uIU/mL (0.358-3.74)
[2021-12-31 17:41] LABS: Testosterone Free 2.6 pg/mL (0.0-4.2)
== END | disposition home or self-care (01) ==
LOC: WOBLAB 10:00
PROVIDERS: PCP Nurse Practitioner Family; Visit Provider Obstetrics & Gynecology
DX: N93.9 Abnormal uterine and vaginal bleeding, unspecified (principal)
CPT/HCPCS: 36415; 82670; 83001; 83002; 84402; 84439; 84443; 85027

== ENCOUNTER 2022-04-14 16:32 | Emergency (ER) | payer MEDICAID, SELFPAY ==
[2022-04-14 16:32] VITALS: BP 125/80; PULSE 92; RESP 18; TEMP 37.2; O2SAT 99; BMI 41.8
--- NOTE | 2022-04-14 16:44 | US_ITS ---
STUDY: FIRST TRIMESTER OBSTETRICAL ULTRASOUND REASON FOR EXAM: Female, 21 years old pelvic pain, vaginal bleeding LMP: TECHNIQUE: Transvaginal TECHNICAL QUALITY: Adequate. PRIOR ULTRASOUND: None. FINDINGS: There is visualization of a single gestational sac in a normal intrauterine position. The mean sac diameter (MSD) measures 1.46 cm, indicating an estimated gestational age (EGA) of 6 weeks, 2 days. The gestational sac shape is within normal limits. There is a visualized yolk sac. The yolk sac measures 3.1 mm. The placenta is non-visualized. There is visualization of a live embryo. The crown-rump length (CRL) measures 3.1 mm, indicating an estimated gestational age (EGA) of 6 weeks, 1 days. There is demonstrated cardiac activity with a heart rate of 110 bpm. The estimated gestation age (EGA) by LMP is 12 weeks, 3 days. The estimated date of delivery (CEZAR) by LMP is 10/24/2022. The estimated gestation age (EGA) by US is 6 weeks, 2 days. The estimated date of delivery (CEZAR) by US is 12/06/2022. The uterus measures 7.8 x 5.9 x 3.7 cm. There is no demonstrated uterine fibroid. The cervix is closed. The right ovary measures 3.4 x 2.2 x 2.2 cm. There is a septated cyst measuring 1.5 x 1.7 x 1.5 cm. There is no visualized right adnexal mass or complex lesion. The left ovary measures 4.2 x 2.9 x 2.2 cm. There is a cyst measuring 1.4 x 1.2 x 1.1 cm.. There is no visualized left adnexal mass or complex lesion. There is no fluid in the cul de sac. US/Transvaginal w/Preg US IMPRESSION: Findings which may be consistent with very early intrauterine gestation. Small septated right ovarian cyst and cyst in left ovary, possibly corpus luteum. Clinical correlation recommended Electronically Signed: Nii Suárez MD at 18:02 EDT ,
--- NOTE | 2022-04-14 16:45 | ED.VIS.FEGU ---
HPI HPI - Female History of Present Illness Chief Complaint: Vag Bld, Preg Detail of Chief Complaint: Pelvic pain with vaginal bleeding Informant: patient Pain Pain: Positive for Pelvic Pain Bleeding Issue: Positive for Vaginal bleeding Narrative Narrative: Patient presents to the emergency department with pelvic pain and some vaginal bleeding. Patient thinks she may be around 6 weeks . On the 16th of this month she had a quant that was 536. Patient is . While at work today she developed some lower pelvic cramping and went to the restroom to urinate and after urinating she states that a jellylike substance that looked like blood clot fell out of her vagina. She had no further bleeding. She has minimal discomfort currently. Patient states she is never had anything like this happen before. She denies recent illness. [facility] Medical History (Updated 04/14/22 @ 18:[address] Chanelle Choudhary, ) ADHD (attention deficit hyperactivity disorder) Asthma Depression Laceration without foreign body of scalp, initial encounter Home Medications cholecalciferol (vitamin D3) 50 mcg (2,000 unit) capsule (Vitamin D3) 50 mcg PO DAILY 04/14/22 [History Last Taken Unknown] vitamin with calcium no.72-iron 27 mg-folic acid 1 mg tablet ( Vitamins Plus Low Iron) 1 tab PO DAILY 04/14/22 [History Last Taken Unknown] Allergy/AdvReac Type Severity Reaction Status Date / Time No Known Allergies Allergy Verified 04/14/22 16:47 Surgical History H/O: Social History (Updated 01/22/21 @ 12:54 by Katina Rodríguez) Smoking Status: Light Smoker (<10/day) ROS ROS ED Review of Systems ROS Unobtainable: other Constitutional Constitutional ED: Reports lethargy; Denies chills, fever(s), sweats or weight loss Eyes Eyes: Denies blurry vision, change in vision or diplopia ENT ENT ED: Denies rhinorrhea or sore throat Cardiovascular Cardiovascular: Reports chest pain and racing heartbeat; Denies orthopnea Respiratory/Chest Respiratory/Chest: Reports dyspnea and dyspnea on exertion; Denies cough, orthopnea or sputum Gastrointestinal Gastrointestinal: Reports abdominal pain; Denies diarrhea, nausea or vomiting Genitourinary Genitourinary ED: Reports other Details: Vaginal bleeding ; Denies dysuria, hematuria or urinary frequency Musculoskeletal Musculoskeletal: Denies arthralgias, back pain, myalgias or neck pain Integumentary Denies abscess, Abrasions or rash Neurologic Neurologic: Denies headache(s) or weakness Psychiatric Psychiatric: Denies anxiety, depression or suicidal thoughts Endocrine Endocrinology: Denies polydipsia, polyphagia or polyuria Hematologic/Lymphatic Hematologic/Lymphatic: Denies easy bleeding, easy bruising or lymphadenopathy Allergic/Immunologic Allergic/Immunologic ED: Denies mouth swelling, tongue swelling or urticaria EXAM Physical Exam Const Vital Signs: 04/14/22 16:32 Temperature 98.9 F Temperature Source Temporal Pulse Rate 92 Respiratory Rate 18 Blood Pressure 125/80 H Blood Pressure Mean 95 Pulse Ox 99 Oxygen Delivery Method Room Air Positive well nourished and well developed General Appearance ED: well developed and NAD HEENT Reports TM's clear and moist mucous membranes normocephalic and atraumatic; Negative for trauma or tenderness Tympanic Membrane ED: Yes TM's clear Eyes PERRL and EOMs intact bilaterally General Eye ED: Negative for pale conjunctiva or scleral icterus Neck no lymphadenopathy, supple and no JVD General: Negative for tenderness Chest Wall inspection of chest normal and palpation of chest normal Chest: Negative for tenderness Resp normal respiratory effort and clear to auscultation bilaterally Effort and Inspection: Negative for respiratory distress or pain with movement Auscultation: Negative for rhonchi, wheezes or diminished lung sounds Cardio regular rate, regular rhythm, S1 normal heart sound, S2 normal heart sound and no murmurs Peripheral Pulses: pulses 2+ throughout GI normal to inspection, nondistended, normoactive bowel sounds, soft to palpation, non-distended and no masses GI Narrative: Mild tenderness over the suprapubic region. There is no rebound, rigidity, or peritoneal signs. Back/Spine no CVA tenderness and no thoracic nor lumbar tenderness Extremity normal to inspection General Extremety ED: Negative for edema General Extremity: Negative for edema Neuro oriented x3, CN's II-XII intact bilaterally, no sensory deficits noted and gait normal Sensorium / Orientation: awake, alert, oriented to person, oriented to place and oriented to time Motor Exam: strength 5/5 throughout and strength abnormal Psych mental status grossly normal Skin no rashes or lesions noted and no wounds MDM MDM MDM Narrative Medical decision making narrative: IV line established on arrival. Patient had a serum quant which was 13,421. CBC with differential was unremarkable. Urinalysis unremarkable. I did do a pelvic ultrasound which is consistent with early intrauterine gestation with a heartbeat at 110 bpm and patient was measuring 6 weeks and 2 days. She is O+ blood type. Case discussed with patient's [employer] Dr. Bess who asked that patient follow-up with their office next week if she continues to have bleeding. Patient advised to return to the ER if persistent heavy bleeding or passing clots or severe abdominal pain or condition should worsen anyway. Lab Data Labs: Laboratory Results - last 24 hr 04/14/22 04/14/22 04/14/22 16:40 16:52 16:52 WBC 10.0 RBC 4.16 L Hgb 12.6 Hct 38.5 MCV 92.5 MCH 30.3 MCHC 32.7 RDW Std Deviation 44.7 H RDW Coeff of Zbigniew 13.2 Plt Count 349 MPV 9.4 Immature Gran % (Auto) 1.000 H Neut % (Auto) 64.3 Lymph % (Auto) 26.4 Ocean % (Auto) 6.5 Eos % (Auto) 1.5 Baso % (Auto) 0.3 Absolute Neuts (auto) 6.5 Absolute Lymphs (auto) 2.65 Nucleated RBC % 0 HCG, Quant 94591 H Urine Color Yellow Urine Clarity Clear Urine pH 7.0 Ur Specific [place] 1.015 Urine Protein Negative Urine Glucose (UA) Normal Urine Ketones Negative Urine Occult Blood Negative Urine Nitrite Negative Urine Bilirubin Negative Urine Urobilinogen Normal Ur Leukocyte Esterase 25 H Urine RBC 0 SEEN Urine WBC 0-5 SEEN Ur Squamous Epith Cells 5-10 SEEN Urine Bacteria 2+ Urine Mucus 1+ Radiography Diagnostic Testing: Clinical Impression(s) from Imaging Studies Obstetrics Ultrasound 04/14/22 16:44 IMPRESSION: Findings which may be consistent with very early intrauterine gestation. Small septated right ovarian cyst and cyst in left ovary, possibly corpus luteum. Clinical correlation recommended Electronically Signed: Nii Suárez MD at 18:02 EDT , Discharge Plan Triage Chief Complaint: Vag Bld, Preg ED Provider: Ungur,Remus Dx/Rx/DC Orders Clinical Impression: Threatened in early Instructions: ED Possible Miscarriage ... Prescriptions: No Action cholecalciferol (vitamin D3) [Vitamin D3] 50 mcg (2,000 unit) capsule 50 mcg PO DAILY Label Comments: TAKE 1 CAPSULE BY MOUTH ONCE DAILY Vitamin Plus Low Iron 27 mg iron- 1 mg tablet 1 tab PO DAILY Label Comments: TAKE 1 TABLET BY MOUTH ONCE DAILY Primary Care Provider: Jany Hendricks NP Referrals: Mayra Bess DO [Med Staff - Active Staff] - 5-7 Days Jany Hendricks NP, [employer] [Primary Care Provider] - Disposition Disposition: Home, Self Care
[2022-04-14 16:55] LABS: Red Blood Cells-Urine 0 SEEN /hpf (0-5)
[2022-04-14 16:57] LABS: Color, Urine Yellow (Yellow); Glucose, Dipstick Normal (Normal); Ketone-Dipstick Negative (Negative); Leukocyte Esterase-Dipstick 25 /ul (Negative); Nitrite-Dipstick Negative (Negative); Occult Blood-Urine Negative /ul (Negative); Protein-Dipstick Negative (Negative); Specific Gravity, Urine 1.015 (1.002-1.030); Urine Bilirubin Dipstick Negative (Negative); Urine Clarity Clear (Clear); Urine Urobilinogen Normal (Normal)
[2022-04-14 17:04] LABS: Bacteria 2+ /hpf (None Seen); Squamous Epithelial Cells - UA 5-10 SEEN /hpf (5-10); White Blood Cells 0-5 SEEN /hpf (0-5)
[2022-04-14 17:05] LABS: Mucous, Urine 1+ /hpf (<or=2+)
[2022-04-14 17:16] LABS: Absolute Lymphocyte Count 2.65 X10^3/uL (0.83-4.51); Absolute Neutrophil Count 6.5 X10^3/uL (2.0-7.7); Basophil# 0.03 X10^3/uL; Basophil% 0.3 % (0-1); Eosinophil# 0.15 X10^3/uL; Eosinophils% 1.5 % (0-5); Hematocrit 38.5 % (37-47); Hemoglobin 12.6 g/dL (12.0-15.0); Lymphocyte # 2.65 X10^3/ul (0.83-4.51); Lymphocyte % 26.4 % (19-41); Mean Corp Hgb Conc 32.7 g/dL (32-36); Mean Corpuscular Hgb 30.3 pg (27.0-32.0); Mean Corpuscular Volume 92.5 fL (81-99); Mean Platelet Vol. 9.4 fl (6.2-12.0); Monocyte# 0.65 X10^3/uL; Monocyte% 6.5 % (0-10); NRBC Flagged by Analyzer 0 % (0-5); Neutrophil # 6.46 X10^3/uL (2.7-7.7); Neutrophil % 64.3 % (47-70); Platelet Count 349 K/mm3 (150-450); RBC Distribution Width CV 13.2 % (11.6-14.6); RBC Distribution Width SD 44.7 fl (35.1-43.9); Red Blood Count 4.16 M/mm3 (4.2-5.4)
[2022-04-14 17:57] LABS: hCG Titer Quant., Serum 13421 mIU/mL (1-3)
[2022-04-14 18:47] VITALS: BP 117/72; PULSE 89; RESP 18; O2SAT 98
== END 2022-04-14 18:52 | disposition home or self-care (01) ==
PROVIDERS: Emergency Provider Emergency Medicine; PCP Nurse Practitioner Family; Visit Provider Emergency Medicine
DX: O20.0 Threatened abortion (principal); O99.511 Diseases of the respiratory system complicating pregnancy, first trimester; J45.909 Unspecified asthma, uncomplicated; O99.341 Other mental disorders complicating pregnancy, first trimester; F90.9 Attention-deficit hyperactivity disorder, unspecified type; O99.331 Smoking (tobacco) complicating pregnancy, first trimester; F17.200 Nicotine dependence, unspecified, uncomplicated; Z3A.00 Weeks of gestation of pregnancy not specified
CPT/HCPCS: 76817; 81001; 84702; 85025; 86900; 86901; 99283; A4216

== ENCOUNTER 2022-05-20 12:11 | Emergency (ER) | payer MEDICAID, SELFPAY ==
[2022-05-20 12:11] VITALS: BP 122/81; PULSE 103; RESP 18; TEMP 36.1; O2SAT 98; BMI 43.1
[2022-05-20 13:19] LABS: Absolute Lymphocyte Count 2.18 X10^3/uL (0.83-4.51); Absolute Neutrophil Count 7.2 X10^3/uL (2.0-7.7); Basophil# 0.03 X10^3/uL; Basophil% 0.3 % (0-1); Eosinophil# 0.13 X10^3/uL; Eosinophils% 1.3 % (0-5); Hematocrit 41.6 % (37-47); Hemoglobin 14.3 g/dL (12.0-15.0); Lymphocyte # 2.18 X10^3/ul (0.83-4.51); Lymphocyte % 21.5 % (19-41); Mean Corp Hgb Conc 34.4 g/dL (32-36); Mean Platelet Vol. 9.5 fl (6.2-12.0); Monocyte# 0.53 X10^3/uL; Monocyte% 5.2 % (0-10); NRBC Flagged by Analyzer 0 % (0-5); Neutrophil # 7.21 X10^3/uL (2.7-7.7); Neutrophil % 71.1 % (47-70); Platelet Count 362 K/mm3 (150-450); RBC Distribution Width CV 13.2 % (11.6-14.6); RBC Distribution Width SD 43.3 fl (35.1-43.9); Red Blood Count 4.62 M/mm3 (4.2-5.4); White Blood Count 10.1 K/mm3 (4.4-11.0)
[2022-05-20 13:31] LABS: Anion Gap 6 (5-15); BUN 4 mg/dL (7-18); BUN/Creat Ratio 9.3 RATIO (10-20); Calcium,Total 9.1 mg/dL (8.5-10.1); Chloride 108 mmol/L (98-107); Creatinine, Serum 0.43 mg/dL (0.55-1.02); EST Glomerular Filtration Rate 194 mL/min (>60); Est Glom Filt Rate - Afr Amer 234 mL/min (>60); Estimated Creatinine Clearance 162.31 ml/min; Glucose 83 mg/dL (74-106); Sodium Level 138 mmol/L (136-145)
[2022-05-20] MEDS: Ondansetron 4 MG/2 ML Vial IV (14:26)
[2022-05-20] MEDS: 0.9% Normal Saline 1,000 ML 999 ML IV (14:26)
[2022-05-20 14:27] VITALS: PULSE 72; RESP 18; O2SAT 100
--- NOTE | 2022-05-20 15:42 | EX.ED.DYSGE1 ---
HPI History of Present Illness Chief Complaint: Dizziness Detail of Chief Complaint: Dizziness which patient defines as lightheadedness. Informant: patient and spouse/S.O. Onset/Context/Timing Onset: Yesterday Context: Sudden Onset Timing: Intermittent Quality: Lightheaded Location: Work Current Severity: Mild Maximum Severity: Severe Worsened by: Suspect vasovagal please read HPI narrative Relieved by: Not applicable Associated Symptoms Associated Symptoms: Nausea, vomiting, pallor, change in vision Narrative Narrative: Patient is a 21-year-old G2, P1 female who is approximately 11 weeks gestation who presents with nausea vomiting x5 since yesterday. She did have hyperemesis gravidarum with her first . She does report thirst and dry mouth. She also reports orthostatic symptoms. She had diarrhea yesterday x2. She had no diarrhea today. She did vomit prior to arrival. She does endorse decreased urine output. She has not noted change in the color urine. She denies abdominal pain. She denies headache, visual, ocular auditory symptoms. She denies cardiac or respiratory symptoms other than what is been documented. Prior similar symptoms: No Recent Illness/Hospitalization: No PFSH PFSH Medical History ADHD (attention deficit hyperactivity disorder) Asthma Depression Laceration without foreign body of scalp, initial encounter Home Medications cholecalciferol (vitamin D3) 50 mcg (2,000 unit) capsule (Vitamin D3) 50 mcg PO DAILY 04/14/22 [History Last Taken Unknown] vitamin with calcium no.72-iron 27 mg-folic acid 1 mg tablet ( Vitamins Plus Low Iron) 1 tab PO DAILY 04/14/22 [History Last Taken Unknown] ondansetron 4 mg disintegrating tablet 4 mg PO Q8H PRN PRN Nausea #10 tabs 05/20/22 [Rx Last Taken Unknown] sertraline 50 mg tablet 50 mg PO QHS 05/20/22 [History Last Taken Unknown] Allergy/AdvReac Type Severity Reaction Status Date / Time No Known Allergies Allergy Verified 05/20/22 12:11 Surgical History H/O: Social History (Updated 05/20/22 @ 15:[address] Zay Pacheco MD) household members: significant other and children Smoking Status: Light Smoker (<10/day) substance use type: does not use ROS ROS ED Constitutional Constitutional ED: Denies chills, fever(s), subjective, sweats or weight loss Eyes Eyes: Denies blurry vision, change in vision or diplopia ENT ENT ED: Denies ear pain, rhinorrhea or sore throat Cardiovascular Cardiovascular: Denies chest pain, palpitations or racing heartbeat Respiratory/Chest Respiratory/Chest: Denies cough, dyspnea or dyspnea on exertion Gastrointestinal Gastrointestinal: Reports diarrhea, nausea and vomiting; Denies abdominal pain, constipation or melena Genitourinary Genitourinary ED: Denies dysuria, hematuria or urinary frequency Musculoskeletal Musculoskeletal: Denies arthralgias, back pain, myalgias or neck pain Integumentary Denies abscess, Abrasions or rash Neurologic Neurologic: Denies headache(s), paresthesias or weakness Endocrine Endocrinology: Denies cold intolerance, heat intolerance, polydipsia, polyphagia or polyuria Hematologic/Lymphatic Hematologic/Lymphatic: Denies easy bleeding or easy bruising EXAM Physical Exam Const Vital Signs: 05/20/22 12:11 05/20/22 13:11 05/20/22 14:27 Temperature 96.9 F L Temperature Source Temporal Pulse Rate 103 H 72 Respiratory Rate 18 18 Respiratory Effort Normal Non-Labored Respiratory Pattern Normal Blood Pressure 122/81 H Blood Pressure Mean 94 Pulse Ox 98 100 Oxygen Delivery Method Room Air Room Air Positive well nourished, well developed and obese General Appearance ED: well developed and NAD; Negative for pallor Nutritional Appearance: obese HEENT Reports dry mucous membranes HEENT Narrative: Head is atraumatic no cephalic. Ears normal. Nares patent. Uvula midline. No deviation of protrusion. Posterior pharynx out erythema or exudate. Mouth ED: Yes dry mucous membranes Mouth: dry mucous membranes Eyes PERRL and EOMs intact bilaterally General Eye ED: Negative for pale conjunctiva or scleral icterus Neck no lymphadenopathy, supple and no JVD Chest Wall inspection of chest normal and palpation of chest normal Resp normal respiratory effort and clear to auscultation bilaterally Cardio regular rate, regular rhythm, S1 normal heart sound, S2 normal heart sound and no murmurs GI normal to inspection, nondistended, normoactive bowel sounds, non-tender, non-distended and no masses; Negative for hepatosplenomegaly Back/Spine no CVA tenderness Cervical Spine: Negative for cervical spine tenderness Thoracic Spine / Upper Back: Negative for thoracic spinal tenderness Lumbar Spine / Lower Back: Negative for lumbar spinal tenderness Extremity normal to inspection General Extremety ED: Negative for edema or tenderness General Extremity: Negative for edema Neuro oriented x3, CN's II-XII intact bilaterally and no sensory deficits noted Sensorium / Orientation: alert Motor Exam: strength 5/5 throughout Psych mental status grossly normal Skin no rashes or lesions noted, no wounds and skin turgor normal General Skin Exam: Negative for jaundice or pallor MDM MDM Lab Data Lab results narrative: Use protocol orders were admitted. Suspect patient has vasovagal near syncopal episode. She also may have a GI viral illness. She is passed p.o. challenge. Blood work is unremarkable. She will be discharged home in stable and improved condition with prescription for Zofran. Labs: Laboratory Results - last 24 hr 05/20/22 05/20/22 13:05 13:05 WBC 10.1 RBC 4.62 Hgb 14.3 Hct 41.6 MCV 90.0 MCH 31.0 MCHC 34.4 RDW Std Deviation 43.3 RDW Coeff of Zbigniew 13.2 Plt Count 362 MPV 9.5 Immature Gran % (Auto) 0.600 Neut % (Auto) 71.1 H Lymph % (Auto) 21.5 [place] % (Auto) 5.2 Eos % (Auto) 1.3 Baso % (Auto) 0.3 Absolute Neuts (auto) 7.2 Absolute Lymphs (auto) 2.18 Nucleated RBC % 0 Sodium 138 Potassium 4.0 Chloride 108 H Carbon Dioxide 24.0 Anion Gap 6 BUN 4 L Creatinine 0.43 L Estim Creat Clear Calc 162.31 Est GFR (MDRD) Af Amer 234 Est GFR (MDRD) Non-Af 194 BUN/Creatinine Ratio 9.3 L Glucose 83 Calcium 9.1 Discharge Plan Triage Chief Complaint: Dizziness ED Provider: Zay Pacheco Dx/Rx/DC Orders Clinical Impression: Vasovagal near syncope, Abdominal pain, vomiting, and diarrhea, First trimester , Mild dehydration Instructions: ED Dehydration (Adult), ED Diet Vomiting Diarrhea, ED Near-Fainting- Vagal Reaction Prescriptions: New ondansetron [ondansetron] 4 mg tablet,disintegrating 4 mg PO Q8H PRN PRN (Reason: Nausea) Qty: 10 0RF No Action cholecalciferol (vitamin D3) [Vitamin D3] 50 mcg (2,000 unit) capsule 50 mcg PO DAILY Label Comments: TAKE 1 CAPSULE BY MOUTH ONCE DAILY Vitamin Plus Low Iron 27 mg iron- 1 mg tablet 1 tab PO DAILY Label Comments: TAKE 1 TABLET BY MOUTH ONCE DAILY sertraline 50 mg Tablet 50 mg PO QHS Primary Care Provider: Jany Hendricks NP Referrals: Jany Hendricks NP, [employer] [Primary Care Provider] - Disposition Disposition: Home, Self Care
== END 2022-05-20 15:58 | disposition home or self-care (01) ==
PROVIDERS: Emergency Provider Emergency Medicine; PCP Nurse Practitioner Family; Visit Provider Emergency Medicine
DX: O21.1 Hyperemesis gravidarum with metabolic disturbance (principal); Z3A.11 11 weeks gestation of pregnancy; F17.200 Nicotine dependence, unspecified, uncomplicated; O26.891 Other specified pregnancy related conditions, first trimester; O99.331 Smoking (tobacco) complicating pregnancy, first trimester; O99.891 Other specified diseases and conditions complicating pregnancy; R19.7 Diarrhea, unspecified; R42 Dizziness and giddiness; R55 Syncope and collapse; J45.909 Unspecified asthma, uncomplicated; E66.9 Obesity, unspecified
CPT/HCPCS: 80048; 85025; 96374; 99283; A4216; J2405

== ENCOUNTER → 2022-07-27 | Outpatient (CLI) | payer MEDICAID, SELFPAY ==
[2022-07-27 13:01] LABS: Absolute Lymphocyte Count 2.62 X10^3/uL (0.83-4.51); Basophil# 0.06 X10^3/uL; Basophil% 0.4 % (0-1); Eosinophil# 0.18 X10^3/uL; Eosinophils% 1.1 % (0-5); Hematocrit 36.3 % (37-47); Hemoglobin 11.8 g/dL (12.0-15.0); Lymphocyte # 2.62 X10^3/ul (0.83-4.51); Lymphocyte % 16.5 % (19-41); Mean Corp Hgb Conc 32.5 g/dL (32-36); Mean Corpuscular Hgb 30.3 pg (27.0-32.0); Mean Corpuscular Volume 93.1 fL (81-99); Mean Platelet Vol. 10.1 fl (6.2-12.0); Monocyte# 0.67 X10^3/uL; Monocyte% 4.2 % (0-10); NRBC Flagged by Analyzer 0 % (0-5); Neutrophil % 75.5 % (47-70); Platelet Count 384 K/mm3 (150-450); RBC Distribution Width CV 13.2 % (11.6-14.6); White Blood Count 15.9 K/mm3 (4.4-11.0)
[2022-07-27 13:56] LABS: HIV - WCH Non-Reactive (Nonreactive); Hepatitis B Surface Antigen Non-Reactive (Nonreactive); Hepatitis C Antibody Non-Reactive (Nonreactive); Rubella IgG Reactive (Nonreactive); Syphilis Antibodies Non-reactive
[2022-07-29 21:48] LABS: V-Zoster IgG (Immunity) < 135 index (Immune >165)
== END | disposition home or self-care (01) ==
LOC: WOBLAB 11:22
PROVIDERS: PCP Nurse Practitioner Family; Visit Provider Obstetrics & Gynecology
DX: Z34.82 Encounter for supervision of other normal pregnancy, second trimester (principal)
CPT/HCPCS: 36415; 85025; 86703; 86762; 86780; 86787; 86803; 87086; 87088; 87340

== ENCOUNTER → 2022-08-24 | Outpatient (CLI) | payer MEDICAID, SELFPAY ==
[2022-08-24 11:25] LABS: Absolute Lymphocyte Count 2.28 X10^3/uL (0.83-4.51); Absolute Neutrophil Count 12.5 X10^3/uL (2.0-7.7); Basophil# 0.06 X10^3/uL; Basophil% 0.4 % (0-1); Eosinophil# 0.25 X10^3/uL; Eosinophils% 1.6 % (0-5); Hemoglobin 11.8 g/dL (12.0-15.0); Lymphocyte # 2.28 X10^3/ul (0.83-4.51); Lymphocyte % 14.2 % (19-41); Mean Corp Hgb Conc 32.8 g/dL (32-36); Mean Corpuscular Hgb 30.6 pg (27.0-32.0); Mean Corpuscular Volume 93.3 fL (81-99); Mean Platelet Vol. 9.9 fl (6.2-12.0); Monocyte# 0.56 X10^3/uL; Monocyte% 3.5 % (0-10); NRBC Flagged by Analyzer 0 % (0-5); Neutrophil # 12.45 X10^3/uL (2.7-7.7); Neutrophil % 77.3 % (47-70); Platelet Count 389 K/mm3 (150-450); RBC Distribution Width CV 13.1 % (11.6-14.6); RBC Distribution Width SD 44.5 fl (35.1-43.9); Red Blood Count 3.86 M/mm3 (4.2-5.4); White Blood Count 16.1 K/mm3 (4.4-11.0)
[2022-08-24 12:26] LABS: Glucose Challenge Gest 1H 50g 134 mg/dL (70-140)
== END | disposition home or self-care (01) ==
PROVIDERS: PCP Nurse Practitioner Family; Visit Provider Obstetrics & Gynecology
DX: Z34.82 Encounter for supervision of other normal pregnancy, second trimester (principal)
CPT/HCPCS: 36415; 82950; 85025

== ENCOUNTER 2022-11-05 00:20 | Outpatient (CLI) | payer MEDICAID, SELFPAY ==
[2022-11-05 01:08] LABS: ROM Internal Control Test YES-OK TO RESULT pt. (Internal QC); ROM Patient Test Negative (Negative)
[2022-11-05 01:17] VITALS: TEMP 37.2; O2SAT 90
[2022-11-05 01:18] VITALS: BP 120/71; PULSE 96
--- NOTE | 2022-11-05 08:29 | PCM.PN.OB ---
Subjective Subjective at 35/2 weeks rule out rupture. Objective Data Objective Data Vital Signs: Vital Signs Temp Pulse BP Pulse Ox 98.9 F 96 120/71 90 11/05/22 01:17 11/05/22 01:18 11/05/22 01:18 11/05/22 01:17 Weight: 105.2 kg Lab / Micro Data Attestation: I reviewed the patient's lab results. Labs: Laboratory Results - last 24 hr 11/05/22 00:40: Vag Amniotic Fld Detect Negative Physical Exam Narrative: Cervix closed per RN NST FHR Rate Baby A Baseline: 145 Variability:: Moderate Accelerations:: 15 x 15 Decelerations:: None NST Reactive:: Yes Uterine Activity:: occasional Assessment & Plan (1) 35 weeks gestation of : PLAN: Not ruptured. Cervix closed. status reassuring. Discharge home with labor precautions. Follow-up in office
== END 2022-11-05 02:12 | disposition home or self-care (01) ==
LOC: WPOUT 00:28 → WP 00:28
PROVIDERS: PCP Nurse Practitioner Family; Referring Provider Student in an Organized Health Care Education/Training Program; Visit Provider Student in an Organized Health Care Education/Training Program
DX: Z03.89 Encounter for observation for other suspected diseases and conditions ruled out (principal); Z3A.35 35 weeks gestation of pregnancy
CPT/HCPCS: 59025; 59050; 84112; 99221; G0378

== ENCOUNTER 2022-11-10 03:25 | Outpatient (CLI) | payer MEDICAID, SELFPAY ==
[2022-11-10 03:36] VITALS: BP 108/64; PULSE 100; TEMP 36.2; O2SAT 98
[2022-11-10 03:41] VITALS: BMI 43.0
[2022-11-10] MEDS: Lactated Ringers 1,000 ML 999 ML IV (05:05)
--- NOTE | 2022-11-10 06:48 | US_ITS ---
STUDY: OBSTETRICAL ULTRASOUND - BIOPHYSICAL PROFILE REASON FOR EXAM: Female, 22 years old decreased movement 36/0 LMP: March 03, 2022. PRIOR ULTRASOUND: None. TECHNIQUE: TECHNICAL QUALITY: Adequate. FINDINGS: There is a single intrauterine fetus. The fetus is in a cephalic presentation. There is demonstrated cardiac activity with a heart rate of 143 bpm. There is a normal amniotic fluid volume. The largest amniotic fluid pocket measures 5.2 cm x 2.4 cm. The amniotic fluid index (AGUSTIN) is 16.4 cm. The placenta is anterior in location and is not low lying. There are Grade 1 placental changes. BIOPHYSICAL PROFILE: Breathing Movements (FBM): 2 Gross Body Movements (GBM): 2 Tone (FT): 2 Amniotic Fluid Volume (AFV): 2 TOTAL SCORE: US/Biophysical Prof W/O Non Stres IMPRESSION: Normal biophysical profile of 02/22. Electronically Signed: Ehsan Falcon MD at 8:52 EDT ,
--- NOTE | 2022-11-10 06:55 | PCM.PN.OB ---
Subjective Subjective at 36/0 weeks presenting with decreased movement. Since admission patient has started to feeling more normal movement, however not quite to the baby's norm yet.Denies leaking of fluid, contractions, vaginal bleeding. Objective Data Objective Data Vital Signs: Vital Signs Temp Pulse BP Pulse Ox 97.2 F L 100 108/64 98 11/10/22 03:36 11/10/22 03:36 11/10/22 03:36 11/10/22 03:36 Weight: 106.8 kg Body Mass Index (BMI) 43.0 Intake & Output: Intake and Output for Last 24 Hours 11/08/22 11/09/22 11/10/22 23:59 23:59 23:59 Intake Total 1000 / 1000 Balance 1000 / 1000 ROS ROS Narrative Review of system negative for headache, vision changes, chest pain or shortness of breath, nausea or vomiting, diarrhea constipation, fevers or chills. Physical Exam Const alert, oriented x3 and no apparent distress HEENT normocephalic Head and Scalp: atraumatic Resp normal respiratory effort GI soft to palpation, non-tender and non-distended GI Narrative: obese Inspection: gravid Extremity normal to inspection Neuro no focal motor deficits and no sensory deficits noted NST FHR Rate Baby A Baseline: 135 Variability:: Moderate Accelerations:: 15 x 15 Decelerations:: None NST Reactive:: Yes Uterine Activity:: none Assessment & Plan (1) Decreased movement: PLAN: at 36/0 weeks presenting with decreased movement. movement is improving, however not at her norm yet. NST is reactive. Patient was given IV fluid bolus and encouraged to hydrate. Bedside ultrasound completed noting some movement, subjectively normal AGUSTIN, practice breathing, cephalic position. We will do biophysical profile this morning. is complicated by: Class III obesity with BMI 43, history of gastroschisis, prior section, history of HSV
== END 2022-11-10 09:00 | disposition home or self-care (01) ==
LOC: WPOUT 03:28 → WP 03:29
PROVIDERS: PCP Nurse Practitioner Family; Referring Provider Student in an Organized Health Care Education/Training Program; Visit Provider Student in an Organized Health Care Education/Training Program
DX: O36.8130 Decreased fetal movements, third trimester, not applicable or unspecified (principal); Z3A.36 36 weeks gestation of pregnancy; O99.213 Obesity complicating pregnancy, third trimester; E66.8 Other obesity
CPT/HCPCS: 96360; 59050; 76815; 76819; 99221; J7120; G0378

== ENCOUNTER → 2022-11-15 | Outpatient (CLI) | payer MEDICAID, SELFPAY ==
[2022-11-15 12:17] LABS: Basophil# 0.06 X10^3/uL; Basophil% 0.5 % (0-1); Eosinophil# 0.12 X10^3/uL; Eosinophils% 0.9 % (0-5); Hematocrit 36.1 % (37-47); Hemoglobin 11.6 g/dL (12.0-15.0); Lymphocyte % 22.1 % (19-41); Mean Corp Hgb Conc 32.1 g/dL (32-36); Mean Corpuscular Hgb 28.9 pg (27.0-32.0); Mean Platelet Vol. 10.6 fl (6.2-12.0); Monocyte# 0.83 X10^3/uL; Monocyte% 6.3 % (0-10); NRBC Flagged by Analyzer 0 % (0-5); Neutrophil # 8.98 X10^3/uL (2.7-7.7); Neutrophil % 68.4 % (47-70); Platelet Count 418 K/mm3 (150-450); RBC Distribution Width CV 14.3 % (11.6-14.6); RBC Distribution Width SD 46.5 fl (35.1-43.9); Red Blood Count 4.01 M/mm3 (4.2-5.4); White Blood Count 13.1 K/mm3 (4.4-11.0)
[2022-11-15 12:47] LABS: Syphilis Antibodies Non-reactive
== END | disposition home or self-care (01) ==
LOC: WOBLAB 11:21
PROVIDERS: PCP Nurse Practitioner Family; Visit Provider Student in an Organized Health Care Education/Training Program
DX: Z34.83 Encounter for supervision of other normal pregnancy, third trimester (principal); Z36.85 Encounter for antenatal screening for Streptococcus B
CPT/HCPCS: 36415; 85025; 86780; 87081

== ENCOUNTER → 2022-11-22 | Outpatient (CLI) | payer MEDICAID, SELFPAY | END | disposition home or self-care (01) | LOC: LABSPEC 14:07 | PROVIDERS: PCP Nurse Practitioner Family; Visit Provider Student in an Organized Health Care Education/Training Program | DX: N39.0 Urinary tract infection, site not specified (principal) | CPT/HCPCS: 87086; 87088 ==

== ENCOUNTER 2022-12-08 05:00 | Inpatient (IN) | payer MEDICAID, SELFPAY ==
[2022-12-08] VITALS (25 sets, daily range): BP systolic 89–120; BP diastolic 49–68; PULSE 66–110; RESP 16–19; TEMP 36–36.9; O2SAT 92–98; BMI 43.4
[2022-12-08] MEDS: Lactated Ringers 1,000 ML 999 ML IV ×2 (05:36→15:30)
[2022-12-08 05:48] LABS: Absolute Lymphocyte Count 2.58 X10^3/uL (0.83-4.51); Absolute Neutrophil Count 10.8 X10^3/uL (2.0-7.7); Basophil# 0.06 X10^3/uL; Basophil% 0.4 % (0-1); Eosinophil# 0.16 X10^3/uL; Eosinophils% 1.1 % (0-5); Hematocrit 35.3 % (37-47); Hemoglobin 11.2 g/dL (12.0-15.0); Lymphocyte # 2.58 X10^3/ul (0.83-4.51); Lymphocyte % 17.7 % (19-41); Mean Corp Hgb Conc 31.7 g/dL (32-36); Mean Corpuscular Hgb 27.9 pg (27.0-32.0); Mean Corpuscular Volume 87.8 fL (81-99); Mean Platelet Vol. 10.6 fl (6.2-12.0); Monocyte# 0.79 X10^3/uL; Monocyte% 5.4 % (0-10); NRBC Flagged by Analyzer 0 % (0-5); Neutrophil # 10.79 X10^3/uL (2.7-7.7); Neutrophil % 73.8 % (47-70); Platelet Count 399 K/mm3 (150-450); RBC Distribution Width CV 14.2 % (11.6-14.6); RBC Distribution Width SD 45.1 fl (35.1-43.9); Red Blood Count 4.02 M/mm3 (4.2-5.4); White Blood Count 14.6 K/mm3 (4.4-11.0)
[2022-12-08] MEDS: Acetaminophen 500 MG Tablet 1000 MG PO ×4 (06:00→23:06)
--- NOTE | 2022-12-08 06:34 | PCM.HP.BLA ---
History and Physical Date of Admission: 12/08/22 Chief complaint: Repeat section bilateral tubal ligation History present illness: 22-year-old at 40 weeks and 0 days with CEZAR 12/08/2022 arrives for repeat section bilateral tubal ligation. Denies headache, vision changes, chest pain, shortness of breath, nausea vomit, right upper quadrant pain. Patient states good movement. is complicated by history of gastroschisis, smoker, BMI 43, history of section, HSV, anxiety depression Obstetric history: G1: 39-week primary section gastroschisis male G2: Current Past medical history: Anxiety depression, HSV Medications: Lexapro, vitamin, Valtrex Allergies: No known drug allergies Past surgical history: section Family history: Denies history DVT or PE Social history: Vapes, denies alcohol or drug use Review of systems: Besides above pertinent positives a full review of systems was performed and found to be negative Physical exam: Vitals: Blood pressure 120/60 pulse 110 respiratory rate 18 temperature 98.5 SPO2 96% on room air General: Normal-appearing no acute distress HEENT: Normocephalic atraumatic no cervical lymphadenopathy Cardiac/respiratory: No use of accessory muscles, nonlabored breathing Abdomen: Soft, nontender, gravid Extremities: No peripheral edema normal peripheral pulses Psych: Normal affect normal demeanor nonpressured speech Labs: White blood cell count 14.6 hemoglobin 11.2 hematocrit 35.3% platelets 399. Blood type O+ antibody negative Assessment and plan: 22-year-old at 40 weeks and 0 days for repeat section bilateral tubal ligation for history of section desires permanent sterilization. Patient understands risk of the procedure include but are not limited to visceral or vascular injury, prolonged hospitalization, blood loss need for transfusion, reoperation. Patient stated understanding wish to proceed. All questions were answered and consent was signed. History gastroschisis: Followed by MFM, NIPT negative, MSAFP within normal limits
[2022-12-08] MEDS: Lactated Ringers 1,000 ML 150 ML IV (06:35)
[2022-12-08 06:51] LABS: Amphetamine Urine VISTA NEGATIVE (<1000 ng/mL); Barbiturate Urine VISTA NEGATIVE (< 200 ng/mL); Benzodiazepine Urine VISTA NEGATIVE (< 200 ng/mL); Cocaine Urine VISTA NEGATIVE (< 300 ng/mL); Ecstacy Urine VISTA NEGATIVE (< 500 ng/mL); Methadone Urine VISTA NEGATIVE (< 300 ng/mL); PCP Urine VISTA NEGATIVE (< 25 ng/mL); THC Urine VISTA NEGATIVE (< 50 ng/mL); Vista UDS pH Range 5
[2022-12-08] MEDS: Sodium Citrate/Citric Acid 30 ML UDC PO (07:02)
[2022-12-08] MEDS: Cefazolin 2 GM in 0.9% Normal Saline 100 ML IV (07:15)
--- NOTE | 2022-12-08 07:15 | NURSING ---
report given to Elizabeth Alvarez RN in OR at this time
--- NOTE | 2022-12-08 07:45 | FALS_PTH ---
PATIENT: JUANITA CRUMP LOC: [facility] U#:[id number] AGE/SX: ROOM: WP006 RE12/08/[address]: Dr. Guy Do MD : 2000 BED: 1 DIS: 12/09/2022 SPEC #: [id number] RECD: 12/08/22 13:32 STATUS: LIAM REQ #: [id number] SADIE: 12/08/22 07:[address]: Guy Do DEPT: SURGICAL PATHOLOGY RECD BY: Lashay Treviño ENTERED: 12/09/22 08:59 SP TYPE: FALL TUBES OTHR DR: JAKOB Burgess Tissues: Fallopian tube Procedures: Surgery Specimen Level II HEADER OPERATION: Tubal ligation PRE-OP DIAGNOSIS: Sterilization TISSUE SUBMITTED: Fallopian tubes, right side has suture MICROSCOPIC DIAGNOSIS Right fallopian tube, salpingectomy: Complete segment of fallopian tube with no pathologic change. Left fallopian tube, salpingectomy: Complete segment of fallopian tube with no pathologic change. AM:saray 12/10/2022 MICROSCOPIC DESCRIPTION Slides are reviewed. GROSS DESCRIPTION Received in fixative is one container labeled with the patient's name and designated bilateral fallopian tubes, stitch right side. The specimen consists of bilateral fallopian tubes including fimbrial ends. The right fallopian tube measures 6.0 cm in length and 0.7 cm in diameter and left fallopian tube measures 6.5 cm in length and 0.5 cm in diameter. Sections reveal unremarkable cut surfaces. Meringuer sections are submitted in two cassettes as follows: 1 ? right fallopian tube, 2 ? left fallopian tube. / SJ:saray 12/09/2022 TC:4 CPT: 53071 x2
--- NOTE | 2022-12-08 08:17 | OP.PCM_ITS ---
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 Normal uterus, tubes, and ovaries. Consent: Patient with history of section and desires permanent sterilization elects for repeat section Via Pfannenstiel incision bilateral tubal ligation. Patient understands risk of the procedure include but are not limited to visceral or vascular injury, prolonged hospitalization, blood loss need for transfusion, reoperation. Patient state understanding wish to proceed. All questions were answered and consent was signed. Procedure: Patient was brought back to the OR where spinal anesthesia was attempted but converted to general anesthesia was was found to be adequate. Patient was prepared and draped in a supine position with leftward tilt. 2 g Ancef were given for infection prophylaxis. A Pfannenstiel incision was made at the skin with a scalpel. The incision carried down to the fascia with a scalpel. The fascia was excised and extended laterally. Rectus muscle was dissected at the midline down to the level of the pubic symphysis. Preperitoneal fatty tissue was noted peritoneum was entered bluntly. Peritoneum was extended superiorly and inferiorly with good visualization of bladder. Bladder blade was inserted and vesicouterine peritoneum was identified. Low transverse hysterotomy was made. Hand was placed in the incision and gentle fundal pressure was applied once the bladder blade was removed and the head was brought into the incision. Head and shoulders were delivered with ease. Cord was clamped and cut. Baby handed off to nursing. Placenta was delivered via cord traction and fundal massage. IV oxytocin initiated in order to facilitate uterine contractions. Uterus was exteriorized and wiped out with dry laparotomy sponge in order to remove remaining placental membranes. Uterus was closed in a continuous running fashion. Right fallopian tube was identified to the fimbria and elevated with a Kiara using a LigaSure device the mesosalpinx was cut and cauterized, right fallopian tube was transected at the cornua. Right fallopian tube sent to pathology. In similar fashion the left loping tube was identified to the fimbria and the mesosalpinx was cut and cauterized with LigaSure device, left fallopian tube was transected at the cornua and sent to pathology. Uterus was placed back in the abdominal cavity and incision was reinspected, good hemostasis was noted. Fascia was closed in a continuous running fashion with PDS suture. Subcutaneous irrigation was performed and good hemostasis was noted. Skin was closed in a subcuticular fashion. Good hemostasis was noted. All counts were correct x2. Patient tolerated procedure well and was brought to recovery in stable condition.
[2022-12-08 08:20] LABS: Syphilis Antibodies Non-reactive
[2022-12-08] MEDS: Oxytocin 15 Units/NS 250ml 15 UNITS/250 ML IV.SOLN 83 UNITS IV (08:45)
[2022-12-08] MEDS: Ketorolac 30 MG/ML Syringe IV ×3 (09:12→23:07)
[2022-12-08] MEDS: HYDROmorphone 0.5 MG/0.5 ML SYRINGE IV (09:21)
[2022-12-08] MEDS: Escitalopram Oxalate 10 MG Tablet PO (10:52)
[2022-12-08] MEDS: Senna/Docusate Sodium 1 Tablet PO (10:52)
[2022-12-08] MEDS: Lactated Ringers 1,000 ML 100 ML IV (11:50)
[2022-12-08 13:33] LABS: Pathology Specimen OB SEE PATHOLOGY REPORT
--- NOTE | 2022-12-08 18:59 | NURSING ---
Pt has had minimal urine output all day - administered 1,000mL bolus of LR per Dr. Do today - keeping Cottrell catheter in for close output monitoring until output increases.
[2022-12-08] MEDS: Enoxaparin 40 MG/0.4 ML Syringe SC (20:22)
[2022-12-08] MEDS: 0.9% Saline Lock 10 ML Syringe IV (23:07)
[2022-12-09 00:02] VITALS: BP 110/63; PULSE 63; RESP 16; TEMP 36.8; O2SAT 96
[2022-12-09 01:00] VITALS: PULSE 78; RESP 16; O2SAT 95
[2022-12-09 03:00] VITALS: BP 114/55; PULSE 87; RESP 18; TEMP 36.6; O2SAT 95
[2022-12-09] MEDS: Ketorolac 30 MG/ML Syringe IV (05:25)
[2022-12-09] MEDS: 0.9% Saline Lock 10 ML Syringe IV (05:26)
[2022-12-09 05:36] LABS: Hematocrit 31.6 % (37-47); Hemoglobin 9.7 g/dL (12.0-15.0); Mean Corp Hgb Conc 30.7 g/dL (32-36); Mean Corpuscular Hgb 27.8 pg (27.0-32.0); Mean Corpuscular Volume 90.5 fL (81-99); Mean Platelet Vol. 10.7 fl (6.2-12.0); Platelet Count 333 K/mm3 (150-450); RBC Distribution Width CV 14.5 % (11.6-14.6); RBC Distribution Width SD 47.6 fl (35.1-43.9); Red Blood Count 3.49 M/mm3 (4.2-5.4); White Blood Count 13.8 K/mm3 (4.4-11.0)
[2022-12-09 06:04] VITALS: BP 109/51; PULSE 66; RESP 16; TEMP 36.4; O2SAT 95
[2022-12-09] MEDS: Acetaminophen 500 MG Tablet 1000 MG PO ×2 (06:18→13:35)
[2022-12-09 08:21] VITALS: BP 98/57; PULSE 72; RESP 16; TEMP 36.6; O2SAT 98
--- NOTE | 2022-12-09 08:21 | PCM.DC ---
Discharge Instructions Diet Discharge Diet: No restrictions Activity Discharge Activity: Return to Normal Activity, May Drive, May Shower and - (No tub baths for 2 weeks) May resume sexual activity in: 4-6 weeks Lifting Restrictions: No lifting over 25 pounds for 2 to 3 weeks Dressing / Incision Call your doctor if your incision/area has: Continuous Slow Oozing and Foul Smelling Discharge Call your doctor if you observe: Fever of 101 or Higher, Shortness of breath and Chest pain Follow Up Care Please Follow Up With: Guy Do MD When: 2 weeks postoperatively Test Results: Test results from this visit will be discussed in further detail at your follow-up appointment, if applicable. Discharge Plan Admission Admit Date/Time: 12/08/22 05:00 Attending Provider: Guy Do Primary Care Provider: Jany Hendricks NP Discharge Orders/Prescriptions Prescriptions: New oxycodone 5 mg tablet 5 mg PO Q6H PRN (Reason: pain (scale score 7-10)) 4 Days Qty: 16 0RF Continued Vitamin Plus Low Iron 27 mg iron- 1 mg tablet 1 tab PO DAILY Label Comments: TAKE 1 TABLET BY MOUTH ONCE DAILY Lexapro PO.IVFORM DAILY valacyclovir [Valtrex] 1 gram Tablet 1 mg PO DAILY Referrals / Follow Up: Jany Hendricks NP, [facility] [employer] [Primary Care Provider] - Disposition Discharge Orders: Discharge Patient (Routine); Ordered 12/09/22 Ordered By: Dr. Guy Do
--- NOTE | 2022-12-09 08:22 | PCM.PN.OB ---
Subjective Subjective No overnight complaints. Pain well controlled. Tolerating regular diet, ambulating, voiding spontaneously Objective Data Objective Data Vital Signs: Vital Signs Temp Pulse Resp BP Pulse Ox O2 Del Method O2 Flow Rate 97.6 F L 66 16 109/51 L 95 Room Air 2 12/09/22 06:04 12/09/22 06:04 12/09/22 06:04 12/09/22 06:04 12/09/22 06:04 12/09/22 06:04 12/08/22 17:04 Oxygen Flow Rate (L/min) 2 Oxygen Delivery Method Room Air Weight: 237 lb 12.8 oz Body Mass Index (BMI) 43.4 Intake & Output: Intake and Output for Last 24 Hours 12/07/22 12/08/22 12/09/22 23:59 23:59 23:59 Intake Total 5560 / 5560 Output Total 1955 / 5 400 / 400 Balance 3605 / 3605 -400 / -400 Lab / Micro Data Result Diagrams: 12/09/22 05:25 Labs: Laboratory Results - last 24 hr 12/09/22 05:25: WBC 13.8 H, RBC 3.49 L, Hgb 9.7 L, Hct 31.6 L, MCV 90.5, MCH 27.8, MCHC 30.7 L, RDW Std Deviation 47.6 H, RDW Coeff of Zbigniew 14.5, Plt Count 333, MPV 10.7 Physical Exam Const alert, oriented x3, no apparent distress, average body habitus, healthy appearing and well nourished HEENT normocephalic and moist oral mucous membranes Eyes PERRL Neck full ROM Resp normal respiratory effort, no retractions and no use of accessory muscles GI GI Narrative: Soft, nontender, bandage clean dry and intact Extremity normal to inspection and full ROM Neuro moves all extremities and no focal motor deficits Psych mental status grossly normal, affect normal, speech normal and activity/motor behavior normal Assessment & Plan (1) delivery delivered: PLAN: Postop day 1 status post repeat section bilateral tubal salpingectomy. Pain well controlled. Breast-feeding. 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
[2022-12-09] MEDS: Senna/Docusate Sodium 1 Tablet PO (10:09)
[2022-12-09] MEDS: Escitalopram Oxalate 10 MG Tablet PO (10:10)
[2022-12-09] MEDS: Enoxaparin 40 MG/0.4 ML Syringe SC (10:11)
[2022-12-09] MEDS: Ibuprofen 600 MG Tablet PO ×2 (11:20→17:27)
[2022-12-09 17:57] VITALS: BP 123/48; PULSE 74; RESP 18; TEMP 36.6
== END 2022-12-09 18:00 | disposition home or self-care (01) | DRG 539 ==
PROVIDERS: Admitting Provider Obstetrics & Gynecology; PCP Nurse Practitioner Family; Visit Provider Obstetrics & Gynecology
PROC: 0UT70ZZ Resection of Bilateral Fallopian Tubes, Open Approach (ICD-10-PCS; CPT 59514; principal; 2022-12-08 06:55)
DX: O34.211 Maternal care for low transverse scar from previous cesarean delivery (principal); F17.200 Nicotine dependence, unspecified, uncomplicated; F41.8 Other specified anxiety disorders; O99.334 Smoking (tobacco) complicating childbirth; O48.0 Post-term pregnancy; Z37.0 Single live birth; Z3A.40 40 weeks gestation of pregnancy; O99.344 Other mental disorders complicating childbirth
CPT/HCPCS: 59025; 59050; 80307; 85025; 85027; 86780; 86850; 86900; 86901; 88302; 94668; 99221; J7120; A4216; G0378; J2405

== ENCOUNTER → 2024-05-11 | Outpatient (CLI) | payer MEDICAID, SELFPAY | END | disposition home or self-care (01) | PROVIDERS: PCP Nurse Practitioner Family; Referring Provider Physician Assistant Surgical; Visit Provider Physician Assistant Surgical | DX: A64 Unspecified sexually transmitted disease (principal) | CPT/HCPCS: 87491; 87591 ==

== ENCOUNTER → 2025-06-24 | Outpatient (CLI) | payer MEDICAID, SELFPAY ==
[2025-06-24 15:26] LABS: Hematocrit 41.7 % (37-47); Hemoglobin 13.6 g/dL (12.0-15.0); Immature Granulocytes Count 0.040 X10^3/uL (0.0-0.0); Mean Corp Hgb Conc 32.6 g/dL (32-36); Mean Corpuscular Volume 92.5 fL (81-99); Mean Platelet Vol. 10.1 fl (6.2-12.0); NRBC Flagged by Analyzer 0 % (0-5); Platelet Count 371 K/mm3 (150-450); RBC Distribution Width CV 12.3 % (11.6-14.6); RBC Distribution Width SD 42.1 fl (35.1-43.9); Red Blood Count 4.51 M/mm3 (4.2-5.4); White Blood Count 10.0 K/mm3 (4.4-11.0)
[2025-06-24 16:06] LABS: AST(SGOT) 13 U/L (<=31); Alanine Aminotransfer ALT/SGPT 11 U/L (<=34); Albumin, Serum 4.3 g/dL (3.5-5.0); Alkaline Phosphatase 78 U/L (35-104); Anion Gap 11 (5-15); BUN 8 mg/dL (4-19); BUN/Creat Ratio 11.5 RATIO (10-20); Calcium,Total 9.4 mg/dL (7.6-11.0); Carbon Dioxide 25.4 mmol/L (21.0-32.0); Chloride 105 mmol/L (98-108); Cholesterol 181 mg/dL (<=200); Globulin 2.7 g/dL (2.2-4.2); Glucose 72 mg/dL (70-99); Low Density Lipoprotein Calc. 113 mg/dL; Potassium 3.7 mmol/L (3.3-5.1); Triglycerides 82 mg/dL; Very Low Density Lipoprotein 16 mg/dL (5-40); Vitamin B12 477 pg/mL (180-914); Vitamin D,25 Hydroxy 30.7 ng/mL (30-100); cholesterol:hdl ratio screen 3.43
[2025-06-24 16:27] LABS: Iron 96 ug/dL (50-170); Iron Binding Capacity,Total 309 ug/dL (250-450); Iron Binding Capacity,Unsat 213 ug/dL (228-428)
== END | disposition home or self-care (01) ==
LOC: MTLAB 12:54
PROVIDERS: PCP Nurse Practitioner Family; Referring Provider Nurse Practitioner; Visit Provider Nurse Practitioner
DX: F43.12 Post-traumatic stress disorder, chronic (principal)
CPT/HCPCS: 36415; 80053; 80061; 82306; 82607; 83540; 83550; 84443; 85025